=== PATIENT | male | born 1950 | race Caucasian/White ===

== ENCOUNTER 2017-06-08 15:30 | Emergency (ER) | payer OTHER ==
[~2017-06-08] VITALS: Ht 177.8 cm; Wt 100.0 kg
[~2017-06-08 15:30] MED LIST: GEMF600T PO; MISC1CAP2 PO; MISCTAB78 PO; MULT-188 PO; MULT1CAP17 PO; [UNRECOGNIZED DRUG - CODE] PO
[2017-06-08 15:31] VITALS: TEMP 36.7; Ht 177.8 cm; Wt 100.0 kg
[2017-06-08] MEDS ORDERED: CYCLOBENZAPRINE HCL 10 MG TAB PO STA (16:13)
[2017-06-08] MEDS ORDERED: OXYCODONE HCL IR 5 MG TAB (IMMEDIATE RELEASE) PO STA (16:13)
[2017-06-08] MEDS ORDERED: KETOROLAC TROMETHAMINE 60 MG/2 ML VIAL IM STA (16:13)
--- NOTE | 2017-06-08 16:53 | EMERGENCY ROOM VISIT NOTE ---
ED Visit Note First contact with patient: 16:07 CHIEF COMPLAINT: Low back pain HISTORY OF PRESENT ILLNESS: This 67-year-old male presents the ER with chief complaint of left lower back pain. The patient states that he has had pain in this area for the past few weeks. He has been seeing a chiropractor and his symptoms were getting better. The patient states that he was just washing his face this morning and a sharp pain flow into the left lower back again. The patient denies any pain radiating down his legs or any numbness and tingling. The patient denies any loss of bowel or bladder control or any saddle anesthesia. Patient denies any other urinary symptoms. The patient took Advil without any relief of the pain. REVIEW OF SYSTEMS: 6 system review was performed and was negative unless stated otherwise in history of present illness. PMH: The patient is healthy; right shoulder surgery 2, left knee surgery 2, high triglycerides SOCIAL HISTORY: Patient lives with his . The patient admits tobacco use and occasional alcohol use. PHYSICAL EXAM: Vital Signs normal: Reviewed Nurse's notes and agree. GEN.: 67- year-old white male appears in comfortable secondary to back pain. MENTAL STATUS: Alert and oriented in no acute distress. LUMBAR SPINE: No gross bony abnormality noted. Patient is nontender to palpation over the spinous processes. He is tender to palpation over the left paravertebral region, right side nontender. He has full range of motion of the lumbar spine with pain elicited with extension and left lateral bending. Muscle strength is 5 out of 5 bilateral lower extremities and symmetrical. NEURO: Patient is able to heel and toe walk without difficulty. I lateral patellar and Achilles reflexes are 2+. Sensation is intact to pinprick bilateral lower extremities. Negative straight leg raise bilaterally. EMERGENCY DEPARTMENT COURSE: The patient was evaluated. The patient was given Toradol 60 mg IM, Flexeril 10 mg by mouth and OxyIR 10 mg by mouth. The patient did not want the OxyIR since he has not eaten anything. I told him I would give him crackers but he declined. The patient was reevaluated and was feeling slightly better. The patient was independently evaluated by Dr. goodrich who agreed with treatment plan. The patient was discharged home in stable condition. DIAGNOSIS: Lumbar strain DISCHARGE INSTRUCTIONS AND TREATMENT: Ibuprofen 600 mg every 6 hours with food for pain. Rx is given for OxyIR 5 mg. 1-2 tablets every 6 hours as needed for more severe pain. Do not drive while taking the OxyIR. Patient was also given Rx for Flexeril 10 mg. One tablet p.o. every 8 hours for muscle spasms. Dispense [address] taking the Flexeril. Avoid staying in any one position for an extended period of time. If symptoms persist or worsen, follow up with your family doctor for referral for additional testing. Problem List Medical Problems: (1) Hand laceration Status: Resolved Current/Historical Medications Scheduled Docosahexaenoic Acid-Eicosapen ([place]-3), 2 CAP PO DAILY Gemfibrozil (Lopid), 600 MG PO DAILY Misc Natural Products (Osteo Bi-Flex Advanced Do), 1 TAB PO BID Misc Natural Products (Prostate), 1 CAP PO DAILY Multiple Vitamins W/ Minerals (Multi For Him), 1 CAP PO DAILY Allergies Coded Allergies: No Known Allergies (Unverified , 06/08/17) Vital Signs Date Time Temp Pulse Resp B/P (MAP) Pulse Ox O2 Delivery O2 Flow Rate FiO2 06/08/17 15:31 36.7 80 18 166/113 98 Room Air Medications Administered Medications (Trade) Dose Ordered Sig/Radha Route Start Time Stop Time Status Last Admin Dose Admin Ketorolac Tromethamine (Toradol Inj) 60 mg NOW STAT IM 06/08/17 16:13 06/08/17 16:14 DC 06/08/17 16:25 60 MG Cyclobenzaprine HCl (Flexeril Tab) 10 mg NOW STAT PO 06/08/17 16:13 06/08/17 16:14 DC 06/08/17 16:24 10 MG Oxycodone HCl (Roxicodone Immediate Rel Tab) 10 mg NOW STAT PO 06/08/17 16:13 06/08/17 16:14 DC 06/08/17 16:24 10 MG Departure Information Referrals Prakash Maxwell M.D. (PCP) Patient Instructions [facility]
[2017-06-08] MEDS ORDERED: CYCL10TA6 PO (16:55)
[2017-06-08] MEDS ORDERED: OXYC1TAB3 PO (16:55)
[2017-06-08 17:02] VITALS: BP 140/89; PULSE 70; O2SAT 99
--- NOTE | 2017-06-08 19:31 | EMERGENCY ROOM VISIT NOTE ---
ED Visit Note First contact with patient: 16:07 HPI: Left lumbar, hip pain. No urinary retention or bowel incontinence. Plan: Analgesia. PCP f/u. I reviewed the patient's past medical history, medications, and visit nursing notes. I discussed the case with the physician safety assistant, examined the patient, and agree with the findings and plan as documented in the physician assistants note.
== END 2017-06-08 17:04 | disposition home or self-care (01) ==
LOC: C.EDB 15:30 → C.EDD 17:04
DX: S39.012A Strain of muscle, fascia and tendon of lower back, initial encounter (principal); X50.1XXA Overexertion from prolonged static or awkward postures, initial encounter; Y92.9 Unspecified place or not applicable; E78.1 Pure hyperglyceridemia; Z72.0 Tobacco use; Z79.899 Other long term (current) drug therapy

== ENCOUNTER 2018-12-25 17:06 | Inpatient (IN) ==
--- OUTSIDE RECORDS SUMMARY | 2018-12-25 17:09 | External Medical Summary | Continuity of Care Document ---
:1950 Author Name Siena Alvarez Address Unavailable Unavailable , Care Team Providers Name Role Phone [facility] Unavailable [email or web address] [email or web address], [email or web address] Unavailable Unavailable Problems Active medical history not documented Allergies and Adverse Reactions Allergy history not documented Medications Medications not documented Procedures Procedures not documented Immunizations Immunizations not documented Plan of Treatment Planned Observations Planned Goals not documented Results No Known Results Results not documented Encounters Appointment; [facility], Nursing Station 24-Feb-2018 10:20 Encounter Diagnosis: Problem not documented
[2018-12-25] MEDS ORDERED: NITROGLYCERIN SL 0.4 MG/TAB TAB SL PRN (17:13)
[2018-12-25] MEDS ORDERED: ASPIRIN CHEW 324 MG PO STA (17:18)
[2018-12-25] MEDS ORDERED: ASPIRIN CHEW 324 MG ONE (17:19)
[2018-12-25] MEDS ORDERED: NiCARDipine HCL INJ 2.5 MG/ML 10 ML AMP ONE (17:20)
[2018-12-25] MEDS ORDERED: NITROGLYCERIN/D5W 100MCG/ML 20ML SYR ONE (17:21)
[2018-12-25] MEDS ORDERED: HEPARIN (PORCINE) 1000 UNIT/ML 10 ML (CATH LAB USE ONLY) ONE ×2 (17:21→18:14)
[2018-12-25] MEDS ORDERED: fentaNYL citrate 100 MCG/2 ML VIAL ONE (17:22)
[2018-12-25] MEDS ORDERED: MIDAZOLAM HCL 1 MG/ML 2ML VIAL ONE ×2 (17:22→18:10)
--- NOTE | 2018-12-25 17:30 | XRay Report ---
XR chest 1V portable CLINICAL HISTORY: Atypical chest pain COMPARISON STUDY: No previous studies for comparison. FINDINGS: The heart is at the upper limits of normal in size. There is no failure. Focal pulmonary co nsolidation. There are no pleural effusions.[ IMPRESSION: No active disease in the chest. Electronically signed by: Eyal Root M.D. 12/25/2018 5:29 PM
[2018-12-25 17:37] LABS: Basophils # (auto) 0.03 K/uL (0-0.2); Basophils % (auto) 0.4 %; Eosinophils # (auto) 0.21 K/uL (0-0.5); Eosinophils % (auto) 2.5 %; Hematocrit (blood only) 42.8 % (42-52); Hemoglobin 14.5 g/dL (14.0-18.0); Immature Granulocytes # (auto) 0.02 K/uL (0.00-0.02); Immature Granulocytes % (auto) 0.2 %; Lymphocytes # (auto) 2.72 K/uL (1.2-3.4); Lymphocytes % (auto) 32.5 %; Mean Corpuscular Hgb Conc 33.9 g/dL (32-36); Mean Corpuscular Volume 89.2 fL (80-100); Mean Platelet Volume 11.1 fL (7.4-10.4); Monocytes # (auto) 0.73 K/uL (0.11-0.59); Monocytes % (auto) 8.7 %; Neutrophils # (auto) 4.66 K/uL (1.4-6.5); Neutrophils % (auto) 55.7 %; Platelet Count 151 K/uL (130-400); RDW Coefficient of Variation 13.6 % (11.5-14.5); RDW Standard Deviation 44.5 fL (36.4-46.3); White Blood Count 8.37 K/uL (4.8-10.8)
--- NOTE | 2018-12-25 17:44 | Pre Anesthesia Assessment ---
Date of Service December 25, 2018 Pre Sedation Assessment Vital Signs Temp Pulse Pulse Resp BP BP Pulse Ox 12/25/18 17:28 71 19 143/90 H 95 12/25/18 17:18 71 24 167/92 H 95 12/25/18 17:07 36.6 C 65 18 179/94 H 98 Cardiovascular RRR, no murmur, no edema Respiratory normal respiratory effort, lungs clear to auscultation Pre-Sedation Airway Assessment Smoking Status: Current some day smoker Hx Sleep Apnea: No Hx Difficult Intubation: No Short, Thick Neck: No Thyromental Distance: > or= 3.5 Finger Breadths Oral Cavity: + WNL Mallampati Class: III ASA: ASA3 Procedure Planning Contraindications for Sedation: none Current Medications Reviewed: Yes Notes The planned sedation has been discussed with the patient. Informed Consent was obtained. I have identified the patient, determined the appropriateness of sedation and have assessed the patient immediately prior to the procedure. All medicine(s) and interventions are by my order.
[2018-12-25 17:47] LABS: Prothrombin Time 10.4 Seconds (9.0-12.0)
--- NOTE | 2018-12-25 17:48 | Cardiology Consultation ---
Date of Consultation December 25, 2018 Assessment & Plan (1) ST elevation myocardial infarction (STEMI) of inferior wall: Presentation consistent with inferior STEMI and recommend proceeding with emergent cardiac catheterization and likely primary PCI. No apparent contraindications to procedure. Discussed risks, benefits, alternatives of procedure with patient and they are willing to proceed. Further recommendations pending findings of coronary angiography. History of Present Illness History of Present Illness 68-year-old man here with acute chest pain and ECG concerning for acute AL. Patient seen emergently in the ED after heart alert activated upon arrival. No prior cardiac history. Cardiac risk factors include dyslipidemia. No other real medical problems. Symptoms began approximately an ~1-2 hrs prior to arrival after coming in from playing with [employer] outside in the sun. Describes left arm/jaw pain. Denies similar symptoms in the past. Chest pain free on arrival with mild residual arm discomfort. Hemodynamically stable. EKG showed inferior ST elevations. Allergies Allergy/AdvReac Type Severity Reaction Status Date / Time No Known Allergies Allergy Unverified 12/25/18 17:21 Home Medications Home Medications Medication Instructions Recorded Confirmed Type gemfibrozil 600 mg PO DAILY 12/25/18 12/25/18 History glucosamine-chondroitin [Osteo 1 tab PO DAILY 12/25/18 12/25/18 History Bi-Flex] multivitamin 1 tab PO DAILY 12/25/18 12/25/18 History omega 3-zor-wze-fish oil [[place]-3] 1 cap PO DAILY 12/25/18 12/25/18 History nll-Sc-bvi-dmwql-wjvh-dj-Zn-Cu 1 cap PO DAILY 12/25/18 12/25/18 History [Prostate Control] Patient History Medical History Hand laceration (Resolved) Sciatica of left side (Acute) Social History Preferred Language: Frisian marital status: Feels Safe at Home: Yes Smoking Status: Current some day smoker Tobacco Type: smokeless tobacco Review of Systems Review of Systems: Not obtained in the setting of emergent situation Physical Exam Physical Exam: General: Comfortable, no acute distress HEENT: Sclerae anicteric, mucous membranes moist Lungs: Clear to auscultation bilaterally, no rhonchi or wheezes Cardiac: Regular rate and rhythm, no murmurs. No JVD. Abdomen: Soft, nontender, nondistended, positive bowel sounds. Extremities: Warm, well perfused, no edema. 2+ radial pulses Skin: No rashes or lesions. Neuro: Nonfocal Psych: Alert orient x3, normal affect and mood Results & Data Vital Signs (Past 12 Hours) Vital Signs Temp Pulse Pulse Resp BP BP Pulse Ox 12/25/18 17:28 71 19 143/90 H 95 12/25/18 17:18 71 24 167/92 H 95 12/25/18 17:07 36.6 C 65 18 179/94 H 98
[2018-12-25 17:54] LABS: Albumin Level 3.7 gm/dl (3.4-5.0); BUN Creatinine Ratio 25.3 (10-20); Calcium 8.7 mg/dl (8.5-10.1); Creatinine Clr Calc Pharmacy 82.4 ml/min; Est GFR (African American) 85.7; Est GFR (Non-African American) 73.9
[2018-12-25 18:05] LABS: Albumin Globulin Ratio 1.2 (0.9-2); Bilirubin,Total 0.4 mg/dl (0.2-1); Globulin 3.2 gm/dl (2.5-4.0); Total Protein 6.9 gm/dl (6.4-8.2); Troponin I 0.242 ng/ml (0-0.045)
[2018-12-25] MEDS ORDERED: TICAGRELOR 90 MG TAB PO ONE (18:17)
[2018-12-25] MEDS ORDERED: ONDANSETRON INJ 2 MG/ML 2 ML VIAL IV PRN (18:24)
[2018-12-25] MEDS ORDERED: ACETAMINOPHEN 325 MG TAB PO PRN (18:24)
[2018-12-25] MEDS ORDERED: ICU PROTOCOL FOR HYPERGLYCEMIA PRN (18:24)
[2018-12-25] MEDS ORDERED: SODIUM CHLORIDE 0.9% 1000ML 1,000 ML IV SCH (18:30)
--- NOTE | 2018-12-25 18:35 | Post Anesthesia Assessment ---
Date of Service December 25, 2018 Post Sedation Assessment Vital Signs Temp Pulse Pulse Resp BP BP Pulse Ox 12/25/18 17:28 71 19 143/90 H 95 12/25/18 17:18 71 24 167/92 H 95 12/25/18 17:07 36.6 C 65 18 179/94 H 98 Recovery Score Activity: Moves 4 extremities Respiration: Deep Breath/Cough Circulation: +/-20% PreAnes Value Consciousness: Fully Awake Oxygen Saturation: O2 needed for >90% Discharge Sedation Level of Care: Fast Track Phase II Post Sedation Plan On clinical assessment, the patient appears to have tolerated the sedation without complications. Patient is recovering as anticipated. Patient will continue to be monitored by nursing and may be discharged when sedation discharge criteria are met per below protocol. Upon Completions of procedure and additional 15 minutes continue every 5 minute vital signs and the P.A.R. score; then discharge to a Phase I or Fast Track to Phase II per the following guidelines: * Discharge Patient to appropriate Phase II area if PAR is 8 or greater or return to pre- procedure baseline. The post - procedure orders will be as directed. * If PAR score is less than 8 or not return to pre-procedure baseline then patient will follow Phase I monitoring till PAR is reached for Phase II. The Phase I may be done in procedure room or may call to secure a Phase I area. * If naloxone or flumazenil are used for reversal, hold in Phase I for cont inued monitoring from when last reversal dose was given for a minimum of 60 minutes or longer pending the nurse and/or physician discretion of patient condition before discharge to Phase II. Please call the Sedation Physician to re-evaluate and complete post-note for discharge to Phase II area. Do NOT discharge from procedure sedation or Phase 1 until post- sedation evaluation note is complete by procedure /sedation MD Sedation Discharge Instructions to be given to the patient at discharge to home.
--- NOTE | 2018-12-25 18:38 | Cardiac Catheterization ---
Cardiac Cath Procedure Full Procedure Date December 25, 2018 Pre-Procedure Diagnosis Pre-Procedure Diagnosis: STEMI AUC Score AUC Score: 9 Post-Procedure Diagnosis Post-Procedure Diagnosis: Severe CAD, Normal LV Systolic Function and Normal Intracardiac Pressures Procedure(s) Performed Procedure(s) Performed: Coronary Angiography, Left Heart Cath and LV Angiography Mechanical Project Engineer Stas Jay MD Director Cardiology(s) Chriss Estimated Blood Loss Estimated Blood Loss: 5 Medication(s) Medication(s): Fentanyl, Heparin, Lidocaine 1%, Nicardipine, Nitroglycerin and Versed Medication(s): Ticagrelor Summary of Findings Indication: STEMI/Heart Alert Access: 6 Fr right radial artery Catheters: Ikari 3.5 guide Findings: LM -large caliber vessel, no significant disease LAD -large caliber vessel, proximal luminal irregularities, gives off large bifu rcating first diagonal without significant disease, distal vessel with luminal irregularities to the apex Circumflex -large caliber vessel, 100% mid segment occlusion after takeoff of large OM1 RCA -moderate caliber vessel, dominant, 30 to 40% mid segment disease, distal vessel with luminal irregularities. Small right PDA LVEDP -17 -- PCI -- Antithrombotic therapy: Heparin, ticagrelor Procedure: Left knee cannulated with Ikari 3.5 guide Kennel Operator 50 wire passed across lesion into distal vessel Mid circumflex lesion predilated with 2.5 compliant balloon Dilated lesion stented with 3.0 x 34 m [place] drug-eluting stent Stent post-dilated with 3.0 noncompliant balloon IC vasodilators administered for spasm Post procedure SHAVONNE 3 flow, stent well expanded with minimal residual stenosis and no apparent cardiac complications. Arterial Closure: TR band Summary: 1. Inferior STEMI/acutely occluded mid circumflex 2. Mild to moderate non-culprit coronary artery disease -30-40% mid RCA 3. Normal intracardiac filling pressure 4. Successful PCI of mid circumflex and for with single drug-eluting stent (3.0 x 34 mm Benjamin). Recommendations: Admit to ICU for continued monitoring Loaded with Kegler 180 mg Continue dual-antiplatelet therapy for at least 1 year. 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[employer] Cardiac Status Clinical evaluation leading to the procedure CAD Presenation: STEMI Anginal Classification: CCS IV Cardiogenic Shock within 24 Hours: No Cardiac Arrest within 24 Hours: No Imaging Studies Past 6 Months: No Stress Studies Past 6 Months: No Diagnostic Physicians Name: Stas Jay MD Status: Emergency Closure Device Percutaneous Entry Location: Radial Closure Device: Radial Band Recommendations: PCI without planned CABG PCI Indication: Immediate PCI for STEMI First Noted: First EKG Lesion Segment Name: mid circumflex Culprit Artery: Yes Stenosis Prior to Rx (%): 100 Chronic Total Occlusion: No IVUS: No FFR: No Pre-Procedure SHAVONNE Flow: 0 Previously Treated Lesion: No Lesion Complexity: Non-High/Non-C Lesion Length (mm): 28 Thrombus Present: Yes Bifurcation Lesion: Yes Guidewire Across Lesion: Stenosis Post-Procedure (%): 0 Post-Procedure SHAVONNE Flow: 3 Devices(s) Deployed: Yes Yes Intraprocedure Events Significant Disection: No Perforation: No
--- NOTE | 2018-12-25 19:43 | History & Physical Report ---
Date of Service December 25, 2018 Assessment & Plan (1) ST elevation myocardial infarction (STEMI) of inferior wall: This is a 68yo M with a PMH of dyslipidemia and tobacco use disorder who presented to the ED with left arm and jaw discomfort and was found to have an inferior STEMI. -Initial EKG with inferior STEMI -S/p JADON to 1 drug-eluting stent in the circumflex coronary artery -Recovering in ICU without issue. Repeat EKG with normal sinus rhythm -Loaded with Brilinta -Per Dr. Jay, continue dual-antiplatelet therapy for at least 1 year -Trend troponins until peak, check echo -Started on Toprol and Lisinopril. Uptitrate as BP allows -High-dose statin -Consult cardiac Rehab (2) Dyslipidemia: Initiated on high dose statin. Will discontinue gemfibrozil (3) Tobacco use disorder: Currently uses 2 cans smokeless tobacco weekly Counseled on cessation Code status: FULL PCP: Alissa Dispo: Admitted to ICU. Discharge planning ordered. Patient seen in collaboration with Dr. Thomas. Please see addendum. History of Present Illness Chief Complaint: chest pain Primary Care Provider: Prakash Maxwell MD This is a 68yo M with a PMH of dyslipidemia and tobacco use disorder who presented to the ED with left arm and jaw discomfort. Patient woke up today normal state of health and mowed the lawn without issue. Was relaxing in his home a few hours later watching TV when he developed an aching pain in his left arm as well as in his jaw. Denies any associated shortness of breath, diaphoresis, nausea or vomiting. Called a tele-nurse, who instructed him to call an ambulance but patient decided to drive himself to the ED. Upon arrival, patient had an EKG that was concerning for acute TN and heart alert was activated. EKG revealed inferior STEMI and patient was taken to cardiac catheterization, where Dr. Jay placed JADON to occluded mid-circumflex. Patient is recovering in the ICU without issue. Denies any chest pain at rest. No fever, chills, lightheadedness, headache, palpitations, shortness of breath, nausea, vomiting, abdominal pain. No dysuria, diarrhea or constipation. Denies any cardiac history or family history of heart disease. Does use 2 cans of chewing tobacco weekly. Allergies Allergy/AdvReac Type Severity Reaction Status Date / Time No Known Allergies Allergy Unverified 12/25/18 17:21 Home Medications Home Medications Medication Instructions Recorded Confirmed Type gemfibrozil 600 mg PO DAILY 12/25/18 12/25/18 History glucosamine-chondroitin [Osteo 1 tab PO BID 12/25/18 12/25/18 History Bi-Flex] multivitamin 1 tab PO DAILY 12/25/18 12/25/18 History omega 2-nbn-mhp-fish oil [[place]-3] 1 cap PO DAILY 12/25/18 12/25/18 History umo-Fe-nff-meotz-anne-cf-Zn-Cu 1 cap PO BID 12/25/18 12/25/18 History [Prostate Control] Past Med/Surg History Medical History Tobacco use disorder (Chronic) Dyslipidemia (Chronic) Surgical History History of knee surgery (Resolved) History of shoulder surgery (Resolved) Family History Mother Diabetes Social History Preferred Language: Danish Communication Ability: Effective Engineering Surveyor Required: No Beliefs That Will Affect Care: None marital status: Current Living Situation: Spouse Other Information That Helps Us Care for You: No Feels Safe at Home: Yes Safety Concerns: Feels Safe At This Time Smoking Status: Current some day smoker Tobacco Type: smokeless tobacco Do You Dip or Chew Tobacco: Yes Second Hand Exposure: No Tobacco Cessation Education Requested by Patient: No Hx Alcohol Use: Yes Alcohol type: beer Hx Substance Use: No Review of Systems Review of Systems: At least ten systems reviewed and negative except as noted in the HPI. Physical Exam Physical Exam: General Appearance: WD/WN, no apparent distress, resting comfortably Head: normocephalic, atraumatic Eyes: normal inspection, PERRL, EOMI ENT: hearing grossly normal, pharynx normal (moist mucous membranes) Neck: supple, no JVD, no adenopathy Respiratory/Chest: lungs clear to auscultation. No wheezes, rales or rhonci. No respiratory distress or accessory muscle use Cardiovascular: regular rate, rhythm, no murmur, normal peripheral pulses, trace BLE edema Abdomen/GI: normal bowel sounds, soft, non-tender to palpation Extremities/Musculoskelatal: normal inspection, no calf tenderness, normal capillary refill. R wrist guard in place post-cath, no bleeding Neurologic/Psych: alert, normal mood/affect, oriented x 3 Skin: normal color, warm/dry Results & Data Vital Signs (Past 12 Hours) Vital Signs Temp Pulse Pulse Resp BP BP Pulse Ox 12/25/18 19:13 36.8 C 63 19 148/82 H 96 12/25/18 19:00 36.8 C 60 14 148/82 H 94 12/25/18 17:28 71 19 143/90 H 95 12/25/18 17:18 71 24 167/92 H 95 12/25/18 17:07 36.6 C 65 18 179/94 H 98 Laboratory Results Short CBC 12/25/18 Range/Units 17:21 WBC 8.37 (4.8-10.8) K/uL Hgb 14.5 (14.0-18.0) g/dL Hct 42.8 (42-52) % Plt Count 151 (130-400) K/uL BMP 12/25/18 17:21 Sodium 139 Potassium 4.0 Chloride 108 H Carbon Dioxide 29 BUN 26 H Creatinine 1.04 Glucose 103 H Calcium 8.7 Cardiac Enzymes 12/25/18 Range/Units 17:21 Troponin I 0.242 H* (0-0.045) ng/ml Liver Function 12/25/18 Range/Units 17:21 Total Bilirubin 0.4 (0.2-1) mg/dl AST 17 (15-37) U/L ALT 23 (12-78) U/L Alkaline Phosphatase 85 (45-117) U/L Albumin 3.7 (3.4-5.0) gm/dl Diagnostic Findings CXR: IMPRESSION: No active disease in the chest. Supervising Physician Co-Signing Physician Notes I have seen and examined the patient and have discussed the case with the provider above. I agree with the assessment and plan as stated with the following exceptions. Mr. Clayton is recovering well from his cardiac catheterization and stent placement. He minimizes his initial symptoms but did report some chest pain which is not currently present. He is asymptomatic at this time. Physical exam reveals stable vital signs, normal heart exam with S1/S2 heard and no evidence of murmur, gallops or rubs, 2+ radial pulses bilaterally, no JVD, no peripheral edema, clear lungs to auscultation continue management as above with addition of Lipitor 80, metoprolol tartrate 25 mg p.o. twice daily, baby aspirin, Brilinta, lisinopril 5. Patient to recover in ICU overnight for close monitoring. DO William
--- NOTE | 2018-12-25 19:49 | Critical Care Consultation ---
Date of Consultation December 25, 2018 Assessment & Plan (1) Admitted to intensive care unit: Reason Critically Ill: 68-year-old male with acute STEMI status post PTCA with JADON x1 to the circumflex artery NEURO - CAM ICU: NEGATIVE CARDIAC/VASCULAR - Acute STEMI status post PTCA with JADON x1 to the circumflex artery. Monitor hemodynamics closely s/p PCI. AM Echo ASCVD per typical Monitor on telemetry. RESPIRATORY - No h/o pulmonary disease. Supplemental O2 PRN GI/NUTRITION - AHA diet. RENAL/LYTES - No significant electrolyte derangements. - No concerns at this time. ENDO - No h/O DM or Thyroid Dz BSGs per unit protocol. ISS --> gtt per unit policy. HEME - Stable H&H ID - No concerns for infectious contribution at this time. LINES/IV ACCESS - PIVs x2 DVT PROPHYLAXIS - Hold s/p anticoagulation/antiplatelet therapy SCDs I have personally spent 35 minutes of critical care time in the direct management of this patient. This is a life/limb threatening event. This includes time spent evaluating patient, direct bedside care, chart review, placing orders, interpretation of diagnostic studies, discussion with consultants, patient, and family members, as well as other required patient management activities. This time is exclusive of all separately billable procedures, and teaching time and separate from and in addition to any other critical care service time. Thank you for allowing us to participate in the care of this patient. Please refer to my attending physician's documentation for any further recommendations. The patient was seen, examined independently, agreed with the above. You may refer to my other note. (2) S/P PTCA (percutaneous transluminal coronary angioplasty): (3) S/P drug eluting coronary stent placement: (4) Tobacco use disorder: (5) Dyslipidemia: (6) ST elevation myocardial infarction (STEMI) of inferior wall: History of Present Illness Attending Physician: Christopher Reeves MD Patient is a 68-year-old male presenting to the ICU status post PTCA with JADON x1 to the circumflex artery. Presented to the emergency department earlier today with chest pain with radiation to the LEFT arm and jaw. Status post intervention, the patient is without pain. On evaluation, the patient is awake, alert, and oriented. He offers no complaints at this time. Allergies Allergy/AdvReac Type Severity Reaction Status Date / Time No Known Allergies Allergy Unverified 12/25/18 17:21 Home Medications Home Medications Medication Instructions Recorded Confirmed Type gemfibrozil 600 mg PO DAILY 12/25/18 12/25/18 History glucosamine-chondroitin [Osteo 1 tab PO BID 12/25/18 12/25/18 History Bi-Flex] multivitamin 1 tab PO DAILY 12/25/18 12/25/18 History omega 3-djw-itr-fish oil [[place]-3] 1 cap PO DAILY 12/25/18 12/25/18 History odc-Gu-jzb-zokpx-ulsc-pa-Zn-Cu 1 cap PO BID 12/25/18 12/25/18 History [Prostate Control] ticagrelor [Brilinta] 90 mg PO BID 30 Days #60 tab 12/26/18 Rx Patient History Medical History Tobacco use disorder (Chronic) Dyslipidemia (Chronic) Surgical History History of knee surgery (Resolved) History of shoulder surgery (Resolved) Family History Mother Diabetes Social History Preferred Language: Faroese Communication Ability: Effective Talent Acquisition Administrator Required: No Beliefs That Will Affect Care: None marital status: Current Living Situation: Spouse Other Information That Helps Us Care for You: No Feels Safe at Home: Yes Safety Concerns: Feels Safe At This Time Smoking Status: Current some day smoker Tobacco Type: smokeless tobacco Do You Dip or Chew Tobacco: Yes Second Hand Exposure: No Tobacco Cessation Education Requested by Patient: No Hx Alcohol Use: Yes Alcohol type: beer Hx Substance Use: No Review of Systems Review of Systems: A complete 10 point review of systems was reviewed with the patient with pertinent positives and negatives as per history of present illness. All else were negative. Physical Exam Physical Exam: VITAL SIGNS - Vital signs and nursing notes were reviewed. GENERAL - 68-year-old male appearing his stated age who is in no acute distress. Communicates well with provider and answers questions appropriately. HEAD - NC/AT. EYES - PERRL with EOMI bilaterally. Sclera anicteric. EARS - No deformities of external structures noted on gross examination bilaterally. NOSE - Midline and without cyanosis. No epistaxis or purulent drainage noted. Septum midline without deviation or septal hematoma noted. MOUTH/OROPHARYNX - Without perioral cyanosis. t NECK - Neck with FROM. LUNGS - Chest wall symmetric without accessory muscle use, intercostals retractions, or central cyanosis. Normal vesicular breath sounds CTA B/L. No wheezes, rales, or rhonchi appreciated. CARDIAC - RRR with S1/S2. No murmur, rubs, or gallops appreciated. No reproducible tenderness to palpation appreciated over the anterior chest wall. ABDOMEN - Abdominal contour obese without pulsations or visible masses. BS normoactive all four quadrants. No tenderness, palpable masses, hepatosplenomegaly, or ascites noted. EXTREMITIES - No clubbing or peripheral cyanosis. No pretibial edema present. +3/5 radial and dorsalis pedis pulses palpated throughout. NEUROLOGIC - Cranial nerves II through XII grossly intact. PSYCH - A&Ox3 and cooperates fully with examiner. Pt is very pleasant and interacts well with examiner. Results & Data Vital Signs (Past 12 Hours) Vital Signs Temp Pulse Pulse Resp BP BP Pulse Ox 12/25/18 19:13 36.8 C 63 19 148/82 H 96 12/25/18 19:00 36.8 C 60 14 148/82 H 94 12/25/18 17:28 71 19 143/90 H 95 12/25/18 17:18 71 24 167/92 H 95 12/25/18 17:07 36.6 C 65 18 179/94 H 98 PG Care Time/CCT Critical Care Time: Yes Total Critical Care Time: 35
[2018-12-25] MEDS ORDERED: TICAGRELOR 90 MG TAB PO SCH (21:00)
[2018-12-25] MEDS: METOPROLOL TARTRATE 25 MG TAB PO SCH (21:03)
--- NOTE | 2018-12-25 23:54 | Emergency Department Note ---
Entered by Risa Brown acting as a scribe for History of Present Illness General Chief complaint: Cardiac Assessment Stated complaint: LEFT ARM NUMBNESS, JAW PAIN Source: patient History of Present Illness Provider complaint: casdiac assessment Onset (ago): hour(s) 2 Radiation: extremity (left upper) and other (left jaw) Pain Consistency: + other (episode) Maximum Pain Intensity: 3 Quality: + aching Associated symptoms: + denies other symptoms (abdominal pain) and + other (tingling); no chest pain Treatments prior to arrival: NSAID (Advil) The patient is a 68 year old male who presents to the ED with the need for a cardiac assessment starting 2 hours. The patient states that he felt a tingling in his left arm that started 2 hours ago. The patient notes that as of recently his left arm and left jaw aches. The patient took 2 Advil prior to arrival. The patient states that the pain is currently at a 3/10. The patient notes that he uses smokeless tobacco most days. The patient states that he has also started excising again, but mostly does muscular endurance exercises instead of cardio. The patient denies central chest pain or abdominal pain. Home Medications Home Medications Medication Instructions Recorded Confirmed Type gemfibrozil 600 mg PO DAILY 12/25/18 12/25/18 History glucosamine-chondroitin [Osteo 1 tab PO BID 12/25/18 12/25/18 History Bi-Flex] multivitamin 1 tab PO DAILY 12/25/18 12/25/18 History omega 0-jyq-poq-fish oil [[place]-3] 1 cap PO DAILY 12/25/18 12/25/18 History her-Vv-rqo-zmarb-rbef-yf-Zn-Cu 1 cap PO BID 12/25/18 12/25/18 History [Prostate Control] Allergies Allergy/AdvReac Type Severity Reaction Status Date / Time No Known Allergies Allergy Unverified 12/25/18 17:21 Past Med/Surg History Medical History Tobacco use disorder (Chronic) Dyslipidemia (Chronic) Surgical History History of knee surgery (Resolved) History of shoulder surgery (Resolved) Family History Mother Diabetes Social History Preferred Language: German Communication Ability: Effective Formation Testing Operator Required: No Beliefs That Will Affect Care: None marital status: Current Living Situation: Spouse Other Information That Helps Us Care for You: No Feels Safe at Home: Yes Safety Concerns: Feels Safe At This Time Smoking Status: Current some day smoker Tobacco Type: smokeless tobacco Do You Dip or Chew Tobacco: Yes Second Hand Exposure: No Tobacco Cessation Education Requested by Patient: No Hx Alcohol Use: Yes Alcohol type: beer Hx Substance Use: No Review of Systems See HPI for pertinent positives & negatives. and A total of 10 systems reviewed and were otherwise negative Physical Exam Vital Signs Vital Signs - 24 hr 12/25/18 17:07 12/25/18 17:18 12/25/18 17:28 Temperature 36.6 C Temperature Source Oral Sepsis Recent Fever Within 48 Hours No Sepsis New/Unexplained Change in Mental Status No Sepsis Action Taken by Nursing No Action Required Pulse Rate 65 Pulse Rate [Left Finger] 71 71 Respiratory Rate 18 24 19 Respiratory Effort / Characteristics Non-Labored Spontaneous Blood Pressure 179/94 H Blood Pressure [Left Arm] 167/92 H 143/90 H Blood Pressure Mean 122 Blood Pressure Mean [Left Arm] 117 107 Blood Pressure Position Sitting Pulse Oximetry 98 95 95 Oxygen Delivery Method Room Air GENERAL: Awake, alert, well-appearing, in no distress HENT: Normocephalic, atraumatic. EYES: Normal conjunctiva. Sclera non-icteric. NECK: Supple. No nuchal rigidity. RESPIRATORY: Clear to auscultation. No wheezes. Normal respiratory effort. CARDIAC: Normal rate. Normal rhythm. Extremities warm and well perfused. GI: Soft, non-distended. No tenderness to palpation. MUSCULOSKELETAL: Atraumatic. Chest examination reveals no tenderness. No arm tenderness LOWER EXTREMITIES: Calves are equal size bilaterally and non-tender. No edema NEURO: Normal sensorium. No sensory or motor deficits noted. No facial droop. SKIN: Warm and dry. No rash or jaundice noted. Course 1714: Past medical records reviewed. The patient was evaluated in room A1. A complete history and physical exam was performed. 1736: The patient is being sent to the cardiac catheterization lab. 1751: I discussed the patient's case with Dr. Jay- Cardiology. He will evaluate the patient for further management. Consultations Consultation #1: I discussed the patient's case with Dr. Jay- Cardiology. He will evaluate the patient for further management. Time: 17:52 Administered Medications Sodium Chloride (Nss 1000ml) 1,000 mls @ 100 mls/hr IV .Q10H AIDAN Stop: 12/26/18 01:59 Last Admin: 12/25/18 20:35 Dose: 100 mls/hr Documented by: [id number] Metoprolol Tartrate (Lopressor) 25 mg PO BID AIDAN Stop: 01/24/19 20:59 Last Admin: 12/25/18 21:03 Dose: 25 mg Documented by: [id number] Nitroglycerin (Nitrostat) 0.4 mg SL UD PRN PRN Reason: Chest Pain Stop: 01/24/19 17:12 Last Admin: 12/25/18 17:24 Dose: 0.4 mg Documented by: [id number] Discontinued Medications Aspirin (Aspirin) 324 mg PO NOW STA Stop: 12/25/18 17:19 Last Admin: 12/25/18 17:23 Dose: 324 mg Documented by: [id number] Aspirin (Aspirin) Confirm Administered Dose 324 mg .ROUTE .STK-MED ONE Stop: 12/25/18 17:20 Last Admin: 12/25/18 17:24 Dose: Not Given Documented by: [id number] Fentanyl Citrate (Fentanyl Citrate) Confirm Administered Dose 100 mcg .ROUTE .STK-MED ONE Stop: 12/25/18 17:23 Last Admin: 12/25/18 20:29 Dose: Not Given Documented by: [id number] Heparin Sodium (Porcine) (Heparin Iv Bolus (Manual Control Auger Press Operator Use Only)) Confirm Administered Dose 10,000 units .ROUTE .STK-MED ONE Stop: 12/25/18 17:22 Last Admin: 12/25/18 20:28 Dose: Not Given Documented by: [id number] Heparin Sodium (Porcine) (Heparin Iv Bolus (Manual Control Auger Press Operator Use Only)) Confirm Administered Dose 10,000 units .ROUTE .STK-MED ONE Stop: 12/25/18 18:15 Last Admin: 12/25/18 20:30 Dose: Not Given Documented by: [id number] Heparin Sodium/Sodium Chloride (Heparin/Nss 1000 Unit/500ml Flush Bag) Confirm Administered Dose 3,000 units IV .STK-MED ONE Stop: 12/25/18 17:22 Last Admin: 12/25/18 20:28 Dose: Not Given Documented by: [id number] Midazolam HCl (Versed) Confirm Administered Dose 2 mg .ROUTE .STK-MED ONE Stop: 12/25/18 17:23 Last Admin: 12/25/18 20:29 Dose: Not Given Documented by: [id number] Midazolam HCl (Versed) Confirm Administered Dose 2 mg .ROUTE .STK-MED ONE Stop: 12/25/18 18:11 Last Admin: 12/25/18 20:30 Dose: Not Given Documented by: [id number] Nicardipine HCl (Cardene) Confirm Administered Dose 25 mg .ROUTE .STK-MED ONE Stop: 12/25/18 17:21 Last Admin: 12/25/18 20:23 Dose: Not Given Documented by: [id number] Nitroglycerin/Dextrose (Nitroglycerin/D5w 100 Mcg/Ml 20ml Syringe) Confirm Administered Dose 2,000 mcg .ROUTE .STK-MED ONE Stop: 12/25/18 17:22 Last Admin: 12/25/18 20:29 Dose: Not Given Documented by: [id number] Ticagrelor (Brilinta) Confirm Administered Dose 180 mg PO .STK-MED ONE Stop: 12/25/18 18:18 Last Admin: 12/25/18 20:35 Dose: Not Given Documented by: [id number] Medical Decision Making Differential Diagnosis Differential diagnosis: Etiologies such as shingles, musculoskeletal pain, pericarditis, myocarditis, cardiac ischemia, pericardial tamponade, pneumonia, pneumothorax, pleural effusion, hemothorax, pleurisy, aortic pathology, pulmonary embolism, intra- abdominal process, as well as others were considered. Medical Records Attestation: I reviewed the patient's medical records. Home Medications Current Medication List: was personally reviewed by ct Laboratory Data Attestation: I reviewed the patient's lab results. Result diagrams: 12/25/18 17:21 12/25/18 17:21 Lab Results 12/25/18 12/25/18 12/25/18 Range/Units 17:21 17:21 17:21 WBC 8.37 (4.8-10.8) K/uL RBC 4.80 (4.7-6.1) M/uL Hgb 14.5 (14.0-18.0) g/dL Hct 42.8 (42-52) % MCV 89.2 (80-100) fL MCH 30.2 (25-34) pg MCHC 33.9 (32-36) g/dL RDW Std Deviation 44.5 (36.4-46.3) fL RDW Coeff of Rosita 13.6 (11.5-14.5) % Plt Count 151 (130-400) K/uL MPV 11.1 H (7.4-10.4) fL Immature Gran % (Auto) 0.2 % Neut % (Auto) 55.7 % Lymph % (Auto) 32.5 % Mclean % (Auto) 8.7 % Eos % (Auto) 2.5 % Baso % (Auto) 0.4 % Immature Gran # (Auto) 0.02 (0.00-0.02) K/uL Neut # (Auto) 4.66 (1.4-6.5) K/uL Lymph # (Auto) 2.72 (1.2-3.4) K/uL Mclean # (Auto) 0.73 H (0.11-0.59) K/uL Eos # (Auto) 0.21 (0-0.5) K/uL Baso # (Auto) 0.03 (0-0.2) K/uL PT 10.4 (9.0-12.0) Seconds INR 1.0 (0.9-1.1) Activ Coag Time Kaolin (94-140) SECONDS Sodium 139 (136-145) mmol/L Potassium 4.0 (3.5-5.1) mmol/L Chloride 108 H (98-107) mmol/L Carbon Dioxide 29 (21-32) mmol/L Anion Gap 2.0 L (3-11) BUN 26 H (7-18) mg/dl Creatinine 1.04 (0.6-1.4) mg/dl Est Cr Clr Drug Dosing 82.4 ml/min Est GFR ( Amer) 85.7 Est GFR (Non-Af Amer) 73.9 BUN/Creatinine Ratio 25.3 H (10-20) Glucose 103 H (70-99) mg/dl Calcium 8.7 (8.5-10.1) mg/dl Total Bilirubin 0.4 (0.2-1) mg/dl AST 17 (15-37) U/L ALT 23 (12-78) U/L Alkaline Phosphatase 85 (45-117) U/L Troponin I 0.242 H* (0-0.045) ng/ml Total Protein 6.9 (6.4-8.2) gm/dl Albumin 3.7 (3.4-5.0) gm/dl Globulin 3.2 (2.5-4.0) gm/dl Albumin/Globulin Ratio 1.2 (0.9-2) Lipase 178 (73-393) U/L 12/25/18 Range/Units 18:10 WBC (4.8-10.8) K/uL RBC (4.7-6.1) M/uL Hgb (14.0-18.0) g/dL Hct (42-52) % MCV (80-100) fL MCH (25-34) pg MCHC (32-36) g/dL RDW Std Deviation (36.4-46.3) fL RDW Coeff of Rosita (11.5-14.5) % Plt Count (130-400) K/uL MPV (7.4-10.4) fL Immature Gran % (Auto) % Neut % (Auto) % Lymph % (Auto) % Mclean % (Auto) % Eos % (Auto) % Baso % (Auto) % Immature Gran # (Auto) (0.00-0.02) K/uL Neut # (Auto) (1.4-6.5) K/uL Lymph # (Auto) (1.2-3.4) K/uL Mclean # (Auto) (0.11-0.59) K/uL Eos # (Auto) (0-0.5) K/uL Baso # (Auto) (0-0.2) K/uL PT (9.0-12.0) Seconds INR (0.9-1.1) Activ Coag Time Kaolin 219 H (94-140) SECONDS Sodium (136-145) mmol/L Potassium (3.5-5.1) mmol/L Chloride (98-107) mmol/L Carbon Dioxide (21-32) mmol/L Anion Gap (3-11) BUN (7-18) mg/dl Creatinine (0.6-1.4) mg/dl Est Cr Clr Drug Dosing ml/min Est GFR ( Amer) Est GFR (Non-Af Amer) BUN/Creatinine Ratio (10-20) Glucose (70-99) mg/dl Calcium (8.5-10.1) mg/dl Total Bilirubin (0.2-1) mg/dl AST (15-37) U/L ALT (12-78) U/L Alkaline Phosphatase (45-117) U/L Troponin I (0-0.045) ng/ml Total Protein (6.4-8.2) gm/dl Albumin (3.4-5.0) gm/dl Globulin (2.5-4.0) gm/dl Albumin/Globulin Ratio (0.9-2) Lipase (73-393) U/L Imaging Data Radiologist's Impression: Radiology results as stated below per my review and the radiologist's interpretation: XR chest 1V portable CLINICAL HISTORY: Atypical chest pain COMPARISON STUDY: No previous studies for comparison. FINDINGS: The heart is at the upper limits of normal in size. There is no fail ure. Focal pulmonary consolidation. There are no pleural effusions.[ IMPRESSION: No active disease in the chest. Electronically signed by: Eyal Root M.D. 12/25/2018 5:29 PM ECG Data Attestation: I personally reviewed and interpreted this ECG as follows: Indication: chest pain Rate (beats per minute): 70 Rhythm: sinus rhythm Findings: + ST depression (Anterior) and + ST elevation (Inferior); no PVC Blood Pressure Blood Pressure Findings: Elevated blood pressure Blood Pressure Disposition: further management by hospitalist ESTEFANI Burton Patient is a 68-year-old with a history of hyperlipidemia presenting to the emergency department complaining of left arm numbness and jaw pain. Dull ache in the left upper arm. Little bit of numbness in left upper extremity. Started about 2 hours prior to arrival. Pain is minimal right now denies central chest pain. Initial triage EKG shows findings consistent with an inferior ST segment elevation [place]. Atypical presentation but with EKG findings, a heart alert was called. Given aspirin as well as nitroglycerin. Symptoms improved. Chest x-ray and basic labs obtained. Manual Control Auger Press Operator team evaluated patient at bedside. Patient was immediately taken for cardiac catheterization for possible occlusion/leonard nosis. Do not believe this represents acute pneumonia, pneumothorax, dissection, or PE at this time. Patient had basically resolution of symptoms. Patient was taken to cardiac catheterization laboratory for further treatment intervention by the roving changer. Impression & Plan ST elevation myocardial infarction (STEMI) Critical Care Time Critical Care Time: Yes Total Critical Care Time: 30 I have personally spent 30 minutes of critical care time in the direct management of this patient. This includes bedside care, interpretation of varsha gnostic studies, and testing, discussion with consultants, patient, and family members, and other required patient management activities. This 30 minutes is in excess of all separately billable procedures. Discharge Plan Visit Data *Final* Discharge Date/Time: 12/25/18 17:42 Chief Complaint: Cardiac Assessment Stated Complaint: LEFT ARM NUMBNESS, JAW PAIN ED Provider: Escobar Posada Discharge Problem: ST elevation myocardial infarction (STEMI) Patient Disposition: Still a Patient Discharge Instructions Interventions: ED Discharge Assessment Last Done: 12/25/18 17:42 The scribe's documentation has been prepared under my direction and personally reviewed by me in its entirety. I confirm that the note above accurately reflects all work, treatment, procedures, and medical decision making performed by me.
[2018-12-26 06:41] LABS: Basophils # (auto) 0.03 K/uL (0-0.2); Basophils % (auto) 0.3 %; Eosinophils # (auto) 0.17 K/uL (0-0.5); Eosinophils % (auto) 1.9 %; Hematocrit (blood only) 41.3 % (42-52); Immature Granulocytes # (auto) 0.01 K/uL (0.00-0.02); Immature Granulocytes % (auto) 0.1 %; Lymphocytes % (auto) 19.7 %; Mean Corpuscular Hgb Conc 33.9 g/dL (32-36); Mean Corpuscular Volume 89.2 fL (80-100); Mean Platelet Volume 10.8 fL (7.4-10.4); Monocytes # (auto) 0.82 K/uL (0.11-0.59); Neutrophils # (auto) 6.32 K/uL (1.4-6.5); Platelet Count 143 K/uL (130-400); RDW Coefficient of Variation 13.8 % (11.5-14.5); RDW Standard Deviation 45.3 fL (36.4-46.3); Red Blood Count 4.63 M/uL (4.7-6.1); White Blood Count 9.15 K/uL (4.8-10.8)
[2018-12-26 07:08] LABS: BUN Creatinine Ratio 25.4 (10-20); Calcium 8.5 mg/dl (8.5-10.1); Creatinine Clr Calc Pharmacy 99.6 ml/min; Est GFR (African American) 104.5; Est GFR (Non-African American) 90.2; Magnesium 2.2 mg/dl (1.8-2.4); Potassium 3.9 mmol/L (3.5-5.1)
[2018-12-26 07:34] LABS: Phosphorus 2.8 mg/dl (2.5-4.9); Troponin I 58.8 ng/ml (0-0.045)
[2018-12-26 07:44] LABS: Estimated Average Glucose 140 mg/dl; Hemoglobin A1C 6.5 % (4.5-5.6)
[2018-12-26] MEDS: METOPROLOL TARTRATE 25 MG TAB PO SCH ×2 (08:56→21:37)
[2018-12-26] MEDS: ASPIRIN 81 MG ECTAB PO SCH (08:56)
[2018-12-26] MEDS: LISINOPRIL 5 MG TAB PO SCH (08:56)
[2018-12-26] MEDS: ATORVASTATIN 40 MG TAB PO SCH (08:56)
[2018-12-26] MEDS: TICAGRELOR 90 MG TAB PO SCH ×2 (08:57→21:37)
--- NOTE | 2018-12-26 11:31 | Cardiology Progress Note ---
Date of Service December 26, 2018 Assessment & Plan (1) ST elevation myocardial infarction (STEMI) of inferior wall: 2. Preserved LV function, EF 45 to 50% with inferior, inferolateral wall motion of normality 3. Dyslipidemia 4. Prior tobacco use Patient remains pain-free, hemodynamically and electrically stable. Troponin has peaked and LV function preserved. No access site complications. No signs of heart failure on exam Continue DAPT with aspirin and ticagrelor Continue current beta-sherice, DORINA inhibitor Continue high intensity statin From a cardiac standpoint okay to transfer to telemetry today. Hopefully home tomorrow. Appreciate ICU and hospital medicine care Subjective Patient feeling well. No recurrent chest pain/arm/jaw pain. No other new concerns. No events on telemetry. Review of Systems Review of Systems: All systems reviewed & are unremarkable except as noted in HPI & below Physical Exam Physical Exam: General: Comfortable, no acute distress HEENT: Sclerae anicteric, mucous membranes moist Lungs: Clear to auscultation bilaterally, no rhonchi or wheezes Cardiac: Regular rate and rhythm, no murmurs. No JVD. Abdomen: Soft, nontender, nondistended, positive bowel sounds. Extremities: Warm, well perfused, no edema. Right radial artery access site with no ecchymosis, hematoma. Distal pulse and sensation intact. Skin: No rashes or lesions. Neuro: Nonfocal Psych: Alert orient x3, normal affect and mood Results & Data Vital Signs (Past 12 Hours) Vital Signs Temp Pulse Resp BP Pulse Ox 12/26/18 10:15 61 20 116/72 93 12/26/18 09:14 62 30 H 132/77 95 12/26/18 08:01 37 C 62 9 L 137/68 96 12/26/18 08:00 59 L 26 H 96 12/26/18 07:00 55 L 13 118/84 93 12/26/18 05:53 56 L 18 121/77 96 12/26/18 04:45 56 L 20 126/83 94 12/26/18 04:30 55 L 17 139/81 94 12/26/18 04:15 58 L 21 142/84 H 93 12/26/18 04:01 54 L 21 152/88 H 94 12/26/18 03:45 55 L 21 115/72 94 12/26/18 03:30 55 L 13 123/68 93 12/26/18 03:16 56 L 14 151/73 H 94 12/26/18 03:00 52 L 20 117/80 95 12/26/18 02:45 51 L 17 134/71 97 12/26/18 02:30 56 L 23 132/78 94 12/26/18 02:15 55 L 19 143/83 H 95 12/26/18 02:00 56 L 19 138/81 94 12/26/18 01:45 54 L 19 144/80 H 94 12/26/18 01:30 56 L 13 132/84 95 12/26/18 01:15 53 L 19 137/73 95 12/26/18 01:00 54 L 18 116/75 95 12/26/18 00:45 54 L 17 129/73 95 12/26/18 00:30 60 24 136/76 94 12/26/18 00:15 55 L 17 116/76 95 12/26/18 00:00 55 L 21 127/80 94 12/25/18 23:45 56 L 13 139/81 95 12/25/18 23:30 59 L 19 128/77 94
--- NOTE | 2018-12-26 12:51 | Critical Care Progress Note ---
Date of Service December 26, 2018 Assessment & Plan (1) S/P PTCA (percutaneous transluminal coronary angioplasty): Impression: 1. ST elevation [place], status post JADON to left circumflex artery. 2. History of chewing tobacco. 3. History of hyper triglyceridemia. Plan: 1. Continue post cardiac cath medication. 2. Antiplatelet therapy. 3. Statin. 4. Nicotine cessation counseling. 5. Disposition plan per cardiology. Thank you, will follow as needed. Subjective Asymptomatic this a.m., denies any discomfort in his left upper extremity as he came in with. No chest pain or shortness of breath no hemoptysis no abdominal pain no nausea or vomiting, review of system otherwise was asymptomatic. Review of Systems Review of Systems: Asymptomatic x10 systems. Physical Exam Physical Exam: Vital signs are stable, S1-S2 regular rate and rhythm, lungs are clear, abdomen is benign, no edema, neurologically is intact, no discomfort in left upper extremity. Results & Data Vital Signs (Past 12 Hours) Vital Signs Temp Pulse Resp BP Pulse Ox 12/26/18 10:15 61 20 116/72 93 12/26/18 09:14 62 30 H 132/77 95 12/26/18 08:01 37 C 62 9 L 137/68 96 12/26/18 08:00 59 L 26 H 96 12/26/18 07:00 55 L 13 118/84 93 12/26/18 05:53 56 L 18 121/77 96 12/26/18 04:45 56 L 20 126/83 94 12/26/18 04:30 55 L 17 139/81 94 12/26/18 04:15 58 L 21 142/84 H 93 12/26/18 04:01 54 L 21 152/88 H 94 12/26/18 03:45 55 L 21 115/72 94 12/26/18 03:30 55 L 13 123/68 93 12/26/18 03:16 56 L 14 151/73 H 94 12/26/18 03:00 52 L 20 117/80 95 12/26/18 02:45 51 L 17 134/71 97 12/26/18 02:30 56 L 23 132/78 94 12/26/18 02:15 55 L 19 143/83 H 95 12/26/18 02:00 56 L 19 138/81 94 12/26/18 01:45 54 L 19 144/80 H 94 06/29/19 01:30 56 L 13 132/84 95 12/26/18 01:15 53 L 19 137/73 95 12/26/18 01:00 54 L 18 116/75 95 Laboratory Results Labs were reviewed, stable CBC and BMP. Troponin is 58. Expected post cath. However, it is trending down. Triglyceridemia was noted. Diagnostic Findings Chest x-ray was reviewed, unremarkable. PG Care Time/CCT Critical Care Time: Yes Total Critical Care Time: 35
--- NOTE | 2018-12-26 13:00 | Hospitalist Progress Note ---
Date of Service December 26, 2018 Assessment & Plan (1) ST elevation myocardial infarction (STEMI) of inferior wall: Presented on admission with left arm and left sided jaw discomfort EKG on admission showed inferior STEMI S/P emergent cardiac cath and successful PCI of mid circumflex and for with single drug-eluting stent by Dr. Jay Repeat EKG this morning showed no significant ST changes Continue dual-antiplatelet therapy for at least 1 year Continue metoprolol, statin, lisinopril ECHO showed inferior wall akinesis with EF 45- 50 % Will need cardiac Rehab referral OK from cardiology standpoint to transfer to tele (2) Dyslipidemia: Continue High dose starting Will d/c gemfibrozil on discharge (3) Tobacco use disorder: Counseling on tobacco cessation Code status: FULL PCP: [place] Dispo: Will transfer to Tele DVT px on SCDs/Ambulates Subjective Pt was seen and examined Sitting in chair comfortable with no distress Pt said that he feels fine Denies any chest pain, palpitation, dizziness and SOB Physical Exam Physical Exam: General- No acute distress Head- atraumatic Eyes- PERRL, EOMI, ENT- oropharynx clear Neck- supple, no JVD Lungs- clear to auscultation Heart- regular rhythm; no murmur Abdomen- normal bowel sounds, soft, nontender Extremities- no calf tenderness, right radial/wrist area showed no hematoma Neuro- alert, oriented x 3; PERRL, EOMI; no facial palsy; no dysarthria Skin- warm & dry Results & Data Vital Signs (Past 12 Hours) Vital Signs Temp Pulse Resp BP Pulse Ox 12/26/18 10:15 61 20 116/72 93 12/26/18 09:14 62 30 H 132/77 95 12/26/18 08:01 37 C 62 9 L 137/68 96 12/26/18 08:00 59 L 26 H 96 12/26/18 07:00 55 L 13 118/84 93 12/26/18 05:53 56 L 18 121/77 96 12/26/18 04:45 56 L 20 126/83 94 12/26/18 04:30 55 L 17 139/81 94 12/26/18 04:15 58 L 21 142/84 H 93 12/26/18 04:01 54 L 21 152/88 H 94 12/26/18 03:45 55 L 21 115/72 94 12/26/18 03:30 55 L 13 123/68 93 12/26/18 03:16 56 L 14 151/73 H 94 12/26/18 03:00 52 L 20 117/80 95 12/26/18 02:45 51 L 17 134/71 97 12/26/18 02:30 56 L 23 132/78 94 12/26/18 02:15 55 L 19 143/83 H 95 12/26/18 02:00 56 L 19 138/81 94 12/26/18 01:45 54 L 19 144/80 H 94 12/26/18 01:30 56 L 13 132/84 95 12/26/18 01:15 53 L 19 137/73 95 12/26/18 01:00 54 L 18 116/75 95
[2018-12-27 07:34] LABS: BUN Creatinine Ratio 24.2 (10-20); Calcium 8.7 mg/dl (8.5-10.1); Creatinine Clr Calc Pharmacy 92.7 ml/min; Est GFR (African American) 100.7; Est GFR (Non-African American) 86.9; Potassium 4.1 mmol/L (3.5-5.1)
[2018-12-27] MEDS: ASPIRIN 81 MG ECTAB PO SCH (08:23)
[2018-12-27] MEDS: ATORVASTATIN 40 MG TAB PO SCH (08:23)
[2018-12-27] MEDS: TICAGRELOR 90 MG TAB PO SCH (08:23)
[2018-12-27] MEDS: METOPROLOL TARTRATE 25 MG TAB PO SCH (08:24)
[2018-12-27] MEDS: LISINOPRIL 5 MG TAB PO SCH (08:24)
--- NOTE | 2018-12-27 11:55 | Hospitalist Progress Note ---
Date of Service December 27, 2018 Assessment & Plan (1) ST elevation myocardial infarction (STEMI) of inferior wall: Presented on admission with left arm and left sided jaw discomfort EKG on admission showed inferior STEMI S/P emergent cardiac cath and successful PCI of mid circumflex and for with single drug-eluting stent by Dr. Jay Repeat EKG this morning showed no significant ST changes Continue dual-antiplatelet therapy for at least 1 year Continue metoprolol, statin, lisinopril ECHO showed inferior wall akinesis with EF 45- 50 % case discussed with cardiology and ok from cardiology standpoint to discharge home Will need cardiac Rehab referral Follow up appointment with [facility] cardiology outpatient (2) Dyslipidemia: Continue High dose starting Will d/c gemfibrozil on discharge (3) Tobacco use disorder: Counseling on tobacco cessation Code status: FULL PCP: Alissa DVT px on SCDs/Ambulates Dispo: Follow up with your primary care provider Dr. Ga on 01/01 @ 2:55 PM Follow up with [facility] Cardiology group Subjective Pt was seen and examined Sitting in chair with no distress Pt said that he feels fine He said that he has been walking around with no distress Denies any chest pain, palpitation, dizziness, hematuria and SOB Physical Exam Physical Exam: General- No acute distress Head- atraumatic Eyes- PERRL, EOMI, ENT- oropharynx clear Neck- supple, no JVD Lungs- clear to auscultation Heart- regular rhythm; no murmur Abdomen- normal bowel sounds, soft, nontender Extremities- no calf tenderness Neuro- alert, oriented x 3; PERRL, EOMI; no facial palsy; no dysarthria Skin- warm & dry Results & Data Vital Signs (Past 12 Hours) Vital Signs Temp Pulse Pulse Resp BP Pulse Ox 12/27/18 11:08 36.8 C 61 16 90/55 L 96 12/27/18 10:11 36.6 C 65 18 99/64 L 95 12/27/18 08:13 36.6 C 65 18 99/64 L 95 12/27/18 07:08 80 12/27/18 04:24 36.5 C 80 20 133/67 95 12/27/18 00:00 63
--- NOTE | 2018-12-27 12:33 | Cardiology Progress Note ---
Date of Service December 27, 2018 Assessment & Plan (1) ST elevation myocardial infarction (STEMI) of inferior wall: 2. Preserved LV function, EF 45 to 50% with inferior, inferolateral wall motion of normality 3. Dyslipidemia 4. Prior tobacco use Patient remains pain-free, hemodynamically and electrically stable. From a cardiac standpoint okay for discharge today. Home on aspirin and ticagrelor. DAPT for 1 year. Strongly recommended ticagrelor for at least the first month. Samples and insurance card provided. Home on current beta-sherice, DORINA inhibitor and high intensity statin Can discontinue gemfibrozil, fish oil. Follow-up with cardiology and 2 weeks. Subjective Feeling well today. No recurrent chest pain/arm or neck discomfort. No other new concerns. Telemetry reviewedno events Review of Systems Review of Systems: All systems reviewed & are unremarkable except as noted in HPI & below Physical Exam Physical Exam: General: Comfortable, no acute distress HEENT: Sclerae anicteric, mucous membranes moist Lungs: Clear to auscultation bilaterally, no rhonchi or wheezes Cardiac: Regular rate and rhythm, no murmurs. No JVD. Abdomen: Soft, nontender, nondistended, positive bowel sounds. Extremities: Warm, well perfused, no edema. Insert ready Skin: No rashes or lesions. Neuro: Nonfocal Psych: Alert orient x3, normal affect and mood Results & Data Vital Signs (Past 12 Hours) Vital Signs Temp Pulse Pulse Resp BP Pulse Ox 12/27/18 11:08 36.8 C 61 16 90/55 L 96 12/27/18 10:11 36.6 C 65 18 99/64 L 95 12/27/18 08:13 36.6 C 65 18 99/64 L 95 12/27/18 07:08 80 12/27/18 04:24 36.5 C 80 20 133/67 95
--- NOTE | 2018-12-27 23:04 | Discharge Summary ---
Date of Service December 27, 2018 Admission HPI Per Admitting Provider This is a 68yo M with a PMH of dyslipidemia and tobacco use disorder who presented to the ED with left arm and jaw discomfort. Patient woke up today normal state of health and mowed the lawn without issue. Was relaxing in his home a few hours later watching TV when he developed an aching pain in his left arm as well as in his jaw. Denies any associated shortness of breath, diaphoresis, nausea or vomiting. Called a tele-nurse, who instructed him to call an ambulance but patient decided to drive himself to the ED. Upon arrival, patient had an EKG that was concerning for acute [place] and heart alert was activated. EKG revealed inferior STEMI and patient was taken to cardiac catheterization, where Dr. Jay placed JADON to occluded mid-circumflex. Patient is recovering in the ICU without issue. Denies any chest pain at rest. No fever, chills, lightheadedness, headache, palpitations, shortness of breath, nausea, vomiting, abdominal pain. No dysuria, diarrhea or constipation. Denies any cardiac history or family history of heart disease. Does use 2 cans of chewing tobacco weekly. Admission Exam Per Admitting Provider General Appearance: WD/WN, no apparent distress, resting comfortably Head: normocephalic, atraumatic Eyes: normal inspection, PERRL, EOMI ENT: hearing grossly normal, pharynx normal (moist mucous membranes) Neck: supple, no JVD, no adenopathy Respiratory/Chest: lungs clear to auscultation. No wheezes, rales or rhonci. No respiratory distress or accessory muscle use Cardiovascular: regular rate, rhythm, no murmur, normal peripheral pulses, trace BLE edema Abdomen/GI: normal bowel sounds, soft, non-tender to palpation Extremities/Musculoskelatal: normal inspection, no calf tenderness, normal c apillary refill. R wrist guard in place post-cath, no bleeding Neurologic/Psych: alert, normal mood/affect, oriented x 3 Skin: normal color, warm/dry Principal Diagnosis ST elevation myocardial infarction (STEMI) of inferior wall Dyslipidemia Tobacco abuse Discharge Exam General- No acute distress Head- atraumatic Eyes- PERRL, EOMI, ENT- oropharynx clear Neck- supple, no JVD Lungs- clear to auscultation Heart- regular rhythm; no murmur Abdomen- normal bowel sounds, soft, nontender Extremities- no calf tenderness Neuro- alert, oriented x 3; PERRL, EOMI; no facial palsy; no dysarthria Skin- warm & dry Discharge Data Allergies Allergy/AdvReac Type Severity Reaction Status Date / Time No Known Allergies Allergy Unverified 12/25/18 17:21 Consultations 12/25/18 18:24 Consult Case Management - Discharge Planning Routine 12/25/18 18:26 Consult Education Courses Sales Representative Routine 12/25/18 18:31 Consult Cardiac Rehabilitation Routine Procedures Performed Operation Date: 12/25/18 17:15 Actual Procedures s Cineradiography w/Routine Exam - Daljit Jay MD p Cath, Left with Cors and Vent - Daljit Jay MD s Aspiration/PCI w/JADON for Stemi - Daljit Jay MD Ordered Studies 12/25/18 17:18 CL Cath Imgs for PACS use only Stat XR chest 1V portable CLINICAL HISTORY: Atypical chest pain COMPARISON STUDY: No previous studies for comparison. FINDINGS: The heart is at the upper limits of normal in size. There is no failure. Focal pulmonary consolidation. There are no pleural effusions.[ IMPRESSION: No active disease in the chest. Electronically signed by: Eyal Root M.D. 12/25/2018 5:29 PM Dictated: 12/[id number]/[id number] Transcribed: 12/25/188 Hospital Course (1) ST elevation myocardial infarction (STEMI) of inferior wall: Presented on admission with left arm and left sided jaw discomfort EKG on admission showed inferior STEMI S/P emergent cardiac cath and successful PCI of mid circumflex and for with single drug-eluting stent by Dr. Jay Repeat EKG this morning showed no significant ST changes Continue dual-antiplatelet therapy for at least 1 year Continue metoprolol, statin, lisinopril ECHO showed inferior wall akinesis with EF 45- 50 % case discussed with cardiology and ok from cardiology standpoint to discharge home Will need cardiac Rehab referral Follow up appointment with [facility] outpatient (2) Dyslipidemia: Continue High dose starting Will d/c gemfibrozil on discharge (3) Tobacco use disorder: Counseling on tobacco cessation Code status: FULL PCP: [place] DVT px on SCDs/Ambulates Dispo: Follow up with your primary care provider Dr. Ga on 01/01 @ 2:55 PM Follow up with [facility] Cardiology group Total Time Total Time Spent Total Time Spent (In Minutes): 35 minutes Total Time Includes: Examination of the Patient, Discharge Planning, Medication Reconciliation, Communication With Other Providers and Other Discharge Plan Discharge Items Patient Disposition: Home - Self-Care Reason For Visit: STEMI Discharge Diagnosis: ST elevation myocardial infarction (STEMI) of inferior wall Dyslipidemia Tobacco abuse Discharge Goals: Decrease discomfort, Improve disease control, Improve function and Increase independence Activity: Resume your previous activity Activity Comment: as tolerated Non-emergency contact: Primary Care Provider and Flake Drier Call non-emergency contact if: you have any medication questions Follow-up/Referrals: Prakash Maxwell MD [Primary Care Provider] - Diet: Heart Healthy Addtl Provider Instructions: Follow up with your primary care provider Dr. Ga on 01/01 @ 2:55 PM Follow up with [facility] Cardiology group (Office will call you for the appointment) Your physician or your cardiology will arrange for cardiac rehab Continue dual-antiplatelet therapy with aspirin and Brilinta for at least 1 year While on aspirin and Brilinta, please monitor for abnormal bleeding such as blood in stool and urine Please notify your physician or seek medical attention if you develop any abnormal bleeding Check Liver enzymes in 2 weeks while on statin to monitor your liver function (Your physician will order it at your next visit ) Keep the area for the cardiac cath clean and dry to avoid any infection Do not use creams, lotions or ointment on the wound site Do not take a bath, tub soak, go in a Jacuzzi, or swim in a pool or mcdaniels for one week after the procedure. Do not participate in strenuous activities for 3 days after the procedure. Gradually increase your activities until you reach your normal activity level within two days after the procedure. Avoid heavy lifting (more than 10 pounds) and pushing or pulling heavy objects for the first 5 days after the procedure. Prescriptions: New Brilinta 90 mg Tablet 90 mg PO BID 30 Days Qty: 60 RF: 1 atorvastatin 40 mg Tablet 80 mg PO QAM 30 Days Qty: 60 RF: 0 nitroglycerin [Nitrostat] 0.4 mg Tablet, Sublingual 0.4 mg sublingual UD PRN (Reason: chest pain) 30 Days Qty: 30 RF: 0 lisinopril [Zestril] 5 mg Tablet 5 mg PO QAM 30 Days Qty: 30 RF: 0 metoprolol tartrate 25 mg Tablet 25 mg PO BID 30 Days Qty: 60 RF: 0 aspirin [Ecotrin Low Strength] 81 mg Tablet,Delayed Release (Dr/Ec) 81 mg PO QAM 30 Days Qty: 30 RF: 0 Continued multivitamin Tablet 1 tab PO DAILY RF: 0 glucosamine-chondroitin [Osteo Bi-Flex] 250-200 mg Tablet 1 tab PO BID RF: 0 [place]-3 350 mg-235 mg- 90 mg-597 mg Capsule,Delayed Release(Dr/Ec) 1 cap PO DAILY RF: 0 Prostate Control 01-32-57-100 mg Capsule 1 cap PO BID RF: 0 Discontinued gemfibrozil 600 mg Tablet 600 mg PO DAILY RF: 0 Stand-Alone Forms: [facility] Discharge Orders: Discharge Order (Routine); Ordered 12/27/18 Ordered By: Marietta Gamble Admission Data Admit Date/Time: 12/25/18 18:24 Attending Provider: Marietta Gamble Admit Provider: Daljit Jay Primary Care Provider: Prakash Maxwell Other Providers: Christopher Reeves Anas Service: Telemetry Other Interventions: Discharge Summary Assessment (RN) Last Done: 12/27/18 10:11 DC Date/Time DO NOT enter until pt leaves facility: 12/27/18 13:04
== END 2018-12-27 13:04 | disposition home or self-care (01) | DRG 247 ==
LOC: ED 17:06 → CC 17:42 → 1E 18:24 → SUATTDRO 18:24 → 2S 12-26 14:10

== ENCOUNTER 2020-05-17 13:36 | Inpatient (IN) ==
[2020-05-17] MEDS ORDERED: PIPERACILL/TAZOBAC CONSULT ACTIVE PRN ×2 (14:32→22:14)
[2020-05-17] MEDS ORDERED: PIPERACILLIN/TAZOBACTAM 4.5 GM/120 ML BAG IV ONE (14:32)
--- NOTE | 2020-05-17 14:32 | Emergency Department Note ---
Impression & Plan Acute appendicitis, Abdominal pain ED Provider Note NAME: GERARD JESUS AGE: 70 SEX: M : 1950 ARRIVES VIA: Walk-In INFORMANT: Patient, ED PROVIDER(S): Jaziel Griffin MD Chief Complaint: Abdominal pain HPI: Patient does present with abdominal pain beginning Friday. The patient states it is in the right lower quadrant has been intermittent. The patient states having a bowel movement it does get worse. Patient denies any feeling of fevers or chills but does present with a fever today. The patient denies any Covid symptoms including cough, shortness of breath, chest pains, loss of taste or smell. Patient denies any known Covid contacts. Patient has no prior history of any abdominal surgeries. The patient denies any urinary symptoms states he had a negative urinalysis completed at [facility] today and was referred here for further evaluation and treatment. ROS: See HPI for pertinent positives and negatives. A total of 10 systems were reviewed and otherwise negative. Past medical history: See below Surgical history: See below Social history: See below Physical Exam: GENERAL: Wearing a mask. NAD, non-toxic. EYE EXAM: Normal conjunctiva. PERRL, no anisocoria and EOM's grossly intact w/o pain. NECK: Supple, no nuchal rigidity, no adenopathy, non-tender. No signs of meningismus. LUNGS: Clear to auscultation. Normal chest wall mechanics. HEART: NSR, no MRG. ABDOMEN: Abdomen soft, right lower quadrant pain without diffuse peritonitis, positive obturators, negative psoas. Normo-active bowel sounds, no masses, no rebound or guarding. BACK: No CVA TTP. SKIN: No rashes and no bruising. UPPER EXTREMITIES: Upper extremities are grossly normal. LOWER EXTREMITIES: Grossly normal, no edema. NEURO EXAM: A&O x3, cranial nerves II-XII grossly intact, normal speech, moves all 4 extremities on command w/o issue. Differential diagnoses: Appendicitis, testicular torsion, infections, diverticulitis, UTI, obstruction, mesenteric ischemia, aortic pathology, inflammatory bowel disease, renal colic, PUD, pancreatitis, biliary pathology, hernia, volvulus, constipation, as well as other pathologies. Course: Patient was seen and evaluated the bedside. Full history physical exam was performed. EKG: Indication: Prior history of JADON with abdominal pain Imaging Studies: Radiology results as stated below per my review in the radiologist's interpretation: ABDOMEN AND PELVIS CT WITH IV CONTRAST CT DOSE: 788.98 mGy.cm HISTORY: Acute generalized abdominal pain with fever ab pain; fever TECHNIQUE: Multiaxial CT images of the abdomen and pelvis were performed f ollowing the IV administration of 94 cc of Optiray 320, A dose lowering technique was utilized adhering to the principles of ALARA. COMPARISON STUDY: MRI lumbar spine 01/11/2009 FINDINGS: There is mild dependent subsegmental bibasilar atelectasis. No pneumatosis or pneumoperitoneum. Imaged inferior cardiac chambers are unremarkable. The spleen, pancreas and adrenal glands are unremarkable. Layering cholelithiasis within the gallbladder neck. Mild gallbladder distention. No CT evidence of acute cholecystitis. There are a few tiny indeterminate hypodensities of the right hepatic lobe, possibly reflective of cysts. The liver is otherwise unremarkable. Patency of the hepatic and portal veins. Mild nonspecific bilateral perinephric stranding. Renal sinus cysts are noted on the left. A millimeter hypodensity of the anterior aspect inferior pole left kidney suggests renal cyst. Mild prostamegaly. Mild urinary bladder wall thickening. Moderate mixed plaque of the abdominal aorta without aneurysm. Retroverted left renal vein. No adenopathy. No bowel obstruction. Colonic diverticulosis without acute diverticulitis. Likely reactive wall thickening of the cecum. 10 mm appendicolith is noted within the proximal appendiceal lumen. There is mucosal hyperemia within the appendix which is fluid-filled and dilated measuring up to 2.6 cm at the appendiceal tip. Moderate periappendiceal stranding with trace free fluid. No evidence of perforation or drainable fluid collection. Unremarkable soft tissues. Bones appear intact. Degenerative changes of the spine, pelvis and hips. IMPRESSION: 1. Acute appendicitis with moderate periappendiceal inflammatory stranding and trace free fluid. There is a 10 mm appendicolith noted within the proximal appendiceal lumen. No evidence of perforation or drainable fluid collection. 2. No bowel obstruction or pneumoperitoneum. 3. Cholelithiasis. 4. Colonic diverticulosis. 5. Prostamegaly. 6. Additional findings as above. ACT 112: Negative or not required by law. The above report was generated using voice recognition software. It may contain grammatical, syntax or spelling errors. Electronically signed by: oMisés Bethea M.D. 05/17/2020 4:48 PM Dictated: 05/17/201641 Transcribed: 05/17/201641 Cardiac monitoring: An order was placed for continuous cardiac monitoring. The monitor shows a rate of 96 with sinus rhythm. MDM: Patient does present with fever and abdominal pain. Blood work was obtained along with a CT of the abdomen pelvis. Pain and nausea medications were given addition to empiric antibiotics, lactate and blood cultures. The patient does have an acute appendicitis. The patient did receive Zosyn empirically. Patient does have a white count of 15 with mild shift. Given the patient was febrile believe this is more related to the appendicitis. Covid testing was ordered. Urinalysis is negative. I did speak the on-call general surgeon. I spoke with Dr. Yusra MD. Patient was seen and evaluated by the surgeon and the patient was subsequently taken to the operating room for operative treatment. Past Med/Surg History Medical History Dyslipidemia Tobacco use disorder Surgical History History of knee surgery History of shoulder surgery Family History Mother Diabetes Social History Smoking Status: Never smoker Second Hand Exposure: No; Hx Alcohol Use: Yes Alcohol type: beer Hx Substance Use: No Preferred Language: Lao Communication Ability: Effective Design Maker Required: No Beliefs That Will Affect Care: None marital status: Current Living Situation: Spouse Feels Safe at Home: Yes Assistive Devices: None Allergies Allergies Allergy/AdvReac Type Severity Reaction Status Date / Time No Known Allergies Allergy Verified 05/17/20 15:31 Home Meds Home Medications Medication Instructions Recorded Confirmed glucosamine-chondroitin [Osteo 1 tab PO BID 12/25/18 05/17/20 Bi-Flex] multivitamin 1 tab PO QAM 12/25/18 05/17/20 Beta Prostate 1 tab PO BID 05/17/20 05/17/20 aspirin [Aspirin Low Dose] 81 mg PO QAM 11/18/20 11/18/20 clopidogrel 75 mg PO QAM 05/17/20 05/17/20 lisinopril 5 mg PO QAM 05/17/20 05/17/20 metformin 1,000 mg PO DAILY 05/17/20 05/17/20 Previous Rx's Medication Instructions Recorded atorvastatin 80 mg tablet 80 mg PO QPM #90 tab 04/20/19 Results & Data (ED) Vital Signs Vital Signs - 24 hr 05/17/20 13:39 05/17/20 14:51 05/17/20 14:56 Temperature 38.1 C H Temperature Source Oral Pulse Rate 96 H 99 H Pulse Rate [Apical] Pulse Rate [Left Finger] Pulse Rate from SpO2 Sensor 98 H Pulse Rhythm [Apical] Pulse Rhythm [Left Finger] Pulse Strength [Left Finger] Respiratory Rate 18 19 Respiratory Effort / Characteristics Non-Labored Respiratory Depth Normal Respiratory Pattern Blood Pressure 174/76 H 122/68 Blood Pressure [Left Arm] Blood Pressure [Right Arm] Blood Pressure Mean 108 73 Blood Pressure Mean [Left Arm] Blood Pressure Mean [Right Arm] Blood Pressure Position [Left Arm] Blood Pressure Position [Right Arm] Pulse Oximetry 97 93 95 Oxygen Delivery Method Room Air Oxygen Flow Rate Sepsis Recent Fever Within 48 Hours No Sepsis New/Unexplained Change in Mental Status No Sepsis Action Taken by Nursing No Action Required 05/17/20 14:57 05/17/20 14:58 05/17/20 15:00 Temperature Temperature Source Pulse Rate 101 H 100 H Pulse Rate [Apical] Pulse Rate [Left Finger] 100 H Pulse Rate from SpO2 Sensor 88 91 H Pulse Rhythm [Apical] Pulse Rhythm [Left Finger] Pulse Strength [Left Finger] Respiratory Rate 20 23 22 Respiratory Effort / Characteristics Non-Labored Respiratory Depth Normal Respiratory Pattern Blood Pressure 127/70 Blood Pressure [Left Arm] Blood Pressure [Right Arm] 122/68 Blood Pressure Mean 80 Blood Pressure Mean [Left Arm] Blood Pressure Mean [Right Arm] 86 Blood Pressure Position [Left Arm] Blood Pressure Position [Right Arm] Pulse Oximetry 93 93 94 Oxygen Delivery Method Room Air Oxygen Flow Rate Sepsis Recent Fever Within 48 Hours Sepsis New/Unexplained Change in Mental Status Sepsis Action Taken by Nursing 05/17/20 15:01 05/17/20 15:30 05/17/20 15:31 Temperature Temperature Source Pulse Rate 95 H 84 83 Pulse Rate [Apical] Pulse Rate [Left Finger] Pulse Rate from SpO2 Sensor 94 H 83 83 Pulse Rhythm [Apical] Pulse Rhythm [Left Finger] Pulse Strength [Left Finger] Respiratory Rate 22 20 22 Respiratory Effort / Characteristics Respiratory Depth Respiratory Pattern Blood Pressure 116/68 Blood Pressure [Left Arm] Blood Pressure [Right Arm] Blood Pressure Mean 79 Blood Pressure Mean [Left Arm] Blood Pressure Mean [Right Arm] Blood Pressure Position [Left Arm] Blood Pressure Position [Right Arm] Pulse Oximetry 92 95 94 Oxygen Delivery Method Oxygen Flow Rate Sepsis Recent Fever Within 48 Hours Sepsis New/Unexplained Change in Mental Status Sepsis Action Taken by Nursing 05/17/20 16:00 05/17/20 16:17 05/17/20 16:30 Temperature Temperature Source Pulse Rate 89 Pulse Rate [Apical] Pulse Rate [Left Finger] Pulse Rate from SpO2 Sensor 80 90 Pulse Rhythm [Apical] Pulse Rhythm [Left Finger] Pulse Strength [Left Finger] Respiratory Rate 22 Respiratory Effort / Characteristics Respiratory Depth Respiratory Pattern Blood Pressure 133/73 116/61 Blood Pressure [Left Arm] Blood Pressure [Right Arm] Blood Pressure Mean 95 66 Blood Pressure Mean [Left Arm] Blood Pressure Mean [Right Arm] Blood Pressure Position [Left Arm] Blood Pressure Position [Right Arm] Pulse Oximetry 94 96 Oxygen Delivery Method Oxygen Flow Rate Sepsis Recent Fever Within 48 Hours Sepsis New/Unexplained Change in Mental Status Sepsis Action Taken by Nursing 05/17/20 17:00 05/17/20 17:01 05/17/20 18:05 Temperature Temperature Source Pulse Rate 87 88 92 H Pulse Rate [Apical] Pulse Rate [Left Finger] Pulse Rate from SpO2 Sensor 84 89 Pulse Rhythm [Apical] Pulse Rhythm [Left Finger] Pulse Strength [Left Finger] Respiratory Rate 23 20 20 Respiratory Effort / Characteristics Respiratory Depth Respiratory Pattern Blood Pressure 117/63 128/63 Blood Pressure [Left Arm] Blood Pressure [Right Arm] Blood Pressure Mean 74 84 Blood Pressure Mean [Left Arm] Blood Pressure Mean [Right Arm] Blood Pressure Position [Left Arm] Blood Pressure Position [Right Arm] Pulse Oximetry 93 93 97 Oxygen Delivery Method Oxygen Flow Rate Sepsis Recent Fever Within 48 Hours Sepsis New/Unexplained Change in Mental Status Sepsis Action Taken by Nursing 05/17/20 18:06 05/17/20 18:30 05/17/20 18:48 Temperature 38.1 C H Temperature Source Oral Pulse Rate 87 90 Pulse Rate [Apical] Pulse Rate [Left Finger] 87 Pulse Rate from SpO2 Sensor 90 Pulse Rhythm [Apical] Pulse Rhythm [Left Finger] Regular Pulse Strength [Left Finger] Normal Respiratory Rate 22 15 18 Respiratory Effort / Characteristics Non-Labored Spontaneous Respiratory Depth Normal Respiratory Pattern Regular Blood Pressure 128/63 Blood Pressure [Left Arm] Blood Pressure [Right Arm] 111/61 Blood Pressure Mean 94 Blood Pressure Mean [Left Arm] Blood Pressure Mean [Right Arm] 77 Blood Pressure Position [Left Arm] Blood Pressure Position [Right Arm] Semi-fowlers Pulse Oximetry 93 95 Oxygen Delivery Method Room Air Oxygen Flow Rate Sepsis Recent Fever Within 48 Hours Sepsis New/Unexplained Change in Mental Status Sepsis Action Taken by Nursing 05/17/20 20:58 05/17/20 21:05 Temperature 37.0 C Temperature Source Temporal Artery Scan Temporal Artery Scan Pulse Rate Pulse Rate [Apical] 82 81 Pulse Rate [Left Finger] Pulse Rate from SpO2 Sensor Pulse Rhythm [Apical] Regular Regular Pulse Rhythm [Left Finger] Pulse Strength [Left Finger] Respiratory Rate 15 15 Respiratory Effort / Characteristics Non-Labored Spontaneous Non-Labored Spontaneous Respiratory Depth Normal Normal Respiratory Pattern Regular Regular Blood Pressure Blood Pressure [Left Arm] 114/64 135/72 Blood Pressure [Right Arm] Blood Pressure Mean Blood Pressure Mean [Left Arm] 80 93 Blood Pressure Mean [Right Arm] Blood Pressure Position [Left Arm] Semi-fowlers Semi-fowlers Blood Pressure Position [Right Arm] Pulse Oximetry 100 100 Oxygen Delivery Method Oxymask Oxymask Oxygen Flow Rate 10 10 Sepsis Recent Fever Within 48 Hours Sepsis New/Unexplained Change in Mental Status Sepsis Action Taken by Snf Medications Current Medication List: was personally reviewed by me Laboratory Data Attestation: I reviewed the patient's lab results. Result diagrams: 05/17/20 14:30 05/17/20 14:30 Lab Results 05/17/20 05/17/20 05/17/20 Range/Units 14:30 14:30 14:30 WBC 15.22 H (4.8-10.8) K/uL RBC 5.01 (4.7-6.1) M/uL Hgb 15.1 (14.0-18.0) g/dL POC Hgb (14.0-18.0) g/dl Hct 45.2 (42-52) % POC Hct (42-52) % MCV 90.2 (80-100) fL MCH 30.1 (25-34) pg MCHC 33.4 (32-36) g/dL RDW Std Deviation 47.4 H (36.4-46.3) fL RDW Coeff of Rosita 14.4 (11.5-14.5) % Plt Count 147 (130-400) K/uL MPV 11.9 H (7.4-10.4) fL Immature Gran % (Auto) 0.2 % Neut % (Auto) 80.3 % Lymph % (Auto) 9.3 % Placer % (Auto) 10.0 % Eos % (Auto) 0.1 % Baso % (Auto) 0.1 % Neut # (Auto) 12.22 H (1.4-6.5) K/uL Lymph # (Auto) 1.42 (1.2-3.4) K/uL Placer # (Auto) 1.52 H (0.11-0.59) K/uL Eos # (Auto) 0.01 (0-0.5) K/uL Baso # (Auto) 0.02 (0-0.2) K/uL Immature Gran # (Auto) 0.03 H (0.00-0.02) K/uL POC Sodium (135-144) mmol/L Sodium 133 L (136-145) mmol/L POC Potassium (3.3-5.0) mmol/L Potassium 3.9 (3.5-5.1) mmol/L POC Chloride (101-112) mmol/L Chloride 100 (98-107) mmol/L Carbon Dioxide 27 (21-32) mmol/L POC Total CO2 (24-31) mmol/L Anion Gap 6.0 (3-11) POC Anion Gap (16-25) mmol/L POC BUN (7-18) mg/dl BUN 19 H (7-18) mg/dl Creatinine 1.10 (0.6-1.4) mg/dl POC Creatinine (0.6-1.3) mg/dl Est Cr Clr Drug Dosing 74.8 ml/min Est GFR ( Amer) 79.0 Est GFR (Non-Af Amer) 68.1 BUN/Creatinine Ratio 17.2 (10-20) Glucose 127 H (70-99) mg/dl POC Glucose (other) (70-99) mg/dl Lactate (0.4-2.0) mmol/L Calcium 9.4 (8.5-10.1) mg/dl POC Ioniz Calcium Lisette (1.12-1.32) mmol/l Total Bilirubin 1.3 H (0.2-1) mg/dl AST 17 (15-37) U/L ALT 24 (12-78) U/L Alkaline Phosphatase 98 (45-117) U/L Troponin I < 0.015 (0-0.045) ng/ml Total Protein 7.4 (6.4-8.2) gm/dl Albumin 3.7 (3.4-5.0) gm/dl Globulin 3.7 (2.5-4.0) gm/dl Albumin/Globulin Ratio 1.0 (0.9-2) Lipase 107 (73-393) U/L Procalcitonin < 0.05 (0-0.5) ng/ml Urine Color Urine Appearance (Clear) Urine pH (4.5-7.5) Ur Specific [place] (1.000-1.030) Urine Protein (Negative) Urine Glucose (UA) (Negative) Urine Ketones (Negative) Urine Blood (Negative) Urine Nitrite (Negative) Urine Bilirubin (Negative) Urine Urobilinogen (Negative) Ur Leukocyte Esterase (Negative) SARS-CoV-2 Ag (Rapid) (Negative) Blood Type Antibody Screen 05/17/20 05/17/20 05/17/20 Range/Units 14:35 15:26 16:21 WBC (4.8-10.8) K/uL RBC (4.7-6.1) M/uL Hgb (14.0-18.0) g/dL POC Hgb 15.3 (14.0-18.0) g/dl Hct (42-52) % POC Hct 45 (42-52) % MCV (80-100) fL MCH (25-34) pg MCHC (32-36) g/dL RDW Std Deviation (36.4-46.3) fL RDW Coeff of Rosita (11.5-14.5) % Plt Count (130-400) K/uL MPV (7.4-10.4) fL Immature Gran % (Auto) % Neut % (Auto) % Lymph % (Auto) % Placer % (Auto) % Eos % (Auto) % Baso % (Auto) % Neut # (Auto) (1.4-6.5) K/uL Lymph # (Auto) (1.2-3.4) K/uL Placer # (Auto) (0.11-0.59) K/uL Eos # (Auto) (0-0.5) K/uL Baso # (Auto) (0-0.2) K/uL Immature Gran # (Auto) (0.00-0.02) K/uL POC Sodium 133 L (135-144) mmol/L Sodium (136-145) mmol/L POC Potassium 4.2 (3.3-5.0) mmol/L Potassium (3.5-5.1) mmol/L POC Chloride 98 L (101-112) mmol/L Chloride (98-107) mmol/L Carbon Dioxide (21-32) mmol/L POC Total CO2 26 (24-31) mmol/L Anion Gap (3-11) POC Anion Gap 15.0 L (16-25) mmol/L POC BUN 18 (7-18) mg/dl BUN (7-18) mg/dl Creatinine (0.6-1.4) mg/dl POC Creatinine 1.0 (0.6-1.3) mg/dl Est Cr Clr Drug Dosing ml/min Est GFR ( Amer) Est GFR (Non-Af Amer) BUN/Creatinine Ratio (10-20) Glucose (70-99) mg/dl POC Glucose (other) 127 H (70-99) mg/dl Lactate 1.3 (0.4-2.0) mmol/L Calcium (8.5-10.1) mg/dl POC Ioniz Calcium Lisette 1.12 (1.12-1.32) mmol/l Total Bilirubin (0.2-1) mg/dl AST (15-37) U/L ALT (12-78) U/L Alkaline Phosphatase (45-117) U/L Troponin I (0-0.045) ng/ml Total Protein (6.4-8.2) gm/dl Albumin (3.4-5.0) gm/dl Globulin (2.5-4.0) gm/dl Albumin/Globulin Ratio (0.9-2) Lipase (73-393) U/L Procalcitonin (0-0.5) ng/ml Urine Color Yellow Urine Appearance Clear (Clear) Urine pH 6.5 (4.5-7.5) Ur Specific [place] 1.008 (1.000-1.030) Urine Protein Negative (Negative) Urine Glucose (UA) Negative (Negative) Urine Ketones Negative (Negative) Urine Blood Negative (Negative) Urine Nitrite Negative (Negative) Urine Bilirubin Negative (Negative) Urine Urobilinogen Negative (Negative) Ur Leukocyte Esterase Negative (Negative) SARS-CoV-2 Ag (Rapid) (Negative) Blood Type Antibody Screen 05/17/20 05/17/20 Range/Units 17:26 18:26 WBC (4.8-10.8) K/uL RBC (4.7-6.1) M/uL Hgb (14.0-18.0) g/dL POC Hgb (14.0-18.0) g/dl Hct (42-52) % POC Hct (42-52) % MCV (80-100) fL MCH (25-34) pg MCHC (32-36) g/dL RDW Std Deviation (36.4-46.3) fL RDW Coeff of Rosita (11.5-14.5) % Plt Count (130-400) K/uL MPV (7.4-10.4) fL Immature Gran % (Auto) % Neut % (Auto) % Lymph % (Auto) % Placer % (Auto) % Eos % (Auto) % Baso % (Auto) % Neut # (Auto) (1.4-6.5) K/uL Lymph # (Auto) (1.2-3.4) K/uL Placer # (Auto) (0.11-0.59) K/uL Eos # (Auto) (0-0.5) K/uL Baso # (Auto) (0-0.2) K/uL Immature Gran # (Auto) (0.00-0.02) K/uL POC Sodium (135-144) mmol/L Sodium (136-145) mmol/L POC Potassium (3.3-5.0) mmol/L Potassium (3.5-5.1) mmol/L POC Chloride (101-112) mmol/L Chloride (98-107) mmol/L Carbon Dioxide (21-32) mmol/L POC Total CO2 (24-31) mmol/L Anion Gap (3-11) POC Anion Gap (16-25) mmol/L POC BUN (7-18) mg/dl BUN (7-18) mg/dl Creatinine (0.6-1.4) mg/dl POC Creatinine (0.6-1.3) mg/dl Est Cr Clr Drug Dosing ml/min Est GFR ( Amer) Est GFR (Non-Af Amer) BUN/Creatinine Ratio (10-20) Glucose (70-99) mg/dl POC Glucose (other) (70-99) mg/dl Lactate (0.4-2.0) mmol/L Calcium (8.5-10.1) mg/dl POC Ioniz Calcium Lisette (1.12-1.32) mmol/l Total Bilirubin (0.2-1) mg/dl AST (15-37) U/L ALT (12-78) U/L Alkaline Phosphatase (45-117) U/L Troponin I (0-0.045) ng/ml Total Protein (6.4-8.2) gm/dl Albumin (3.4-5.0) gm/dl Globulin (2.5-4.0) gm/dl Albumin/Globulin Ratio (0.9-2) Lipase (73-393) U/L Procalcitonin (0-0.5) ng/ml Urine Color Urine Appearance (Clear) Urine pH (4.5-7.5) Ur Specific [place] (1.000-1.030) Urine Protein (Negative) Urine Glucose (UA) (Negative) Urine Ketones (Negative) Urine Blood (Negative) Urine Nitrite (Negative) Urine Bilirubin (Negative) Urine Urobilinogen (Negative) Ur Leukocyte Esterase (Negative) SARS-CoV-2 Ag (Rapid) Negative (Negative) Blood Type A Positive Antibody Screen NEGATIVE Administered Medications Discontinued Medications Bupivacaine HCl (Bupivacaine 0.5 % 5 Mg/1 Ml Mpf 30ml Vial) Confirm Administered Dose 30 ml .ROUTE .Sypherlink ONE Stop: 05/17/20 18:34 Last Admin: 05/17/20 20:16 Dose: 30 ml Documented by: [id number] Cefazolin Sodium (Cefazolin 2,000 Mg/15 Ml Iv Push) Confirm Administered Dose 2,000 mg IV .Beyond Verbal-MED ONE Stop: 05/17/20 18:33 Last Admin: 05/17/20 18:56 Dose: 2,000 mg Documented by: [id number] Cefazolin Sodium (Cefazolin 250 Mg/Ml 1 Gm Vial) Confirm Administered Dose 1,000 mg .ROUTE .STK-MED ONE Stop: 05/17/20 18:34 Last Admin: 05/17/20 19:06 Dose: Not Given Documented by: [id number] Heparin Sodium (Porcine) (Heparin (Porcine) 1000 Unit/Ml 10 Ml (Wheelage Clerk Use Only)) Confirm Administered Dose 10,000 units .ROUTE .STK-MED ONE Stop: 05/17/20 18:34 Last Admin: 05/17/20 20:34 Dose: 10,000 units Documented by: [id number] Piperacillin Sod/Tazobactam Sod (Zosyn) 4.5 gm in 120 mls @ 240 mls/hr IV NOW ONE Stop: 05/17/20 15:01 Last Infusion: 05/17/20 16:08 Dose: 0 mls/hr Documented by: [id number] Admin: 05/17/20 15:12 Dose: 240 mls/hr Documented by: [id number] Sodium Chloride (Nss 1000ml) 1,000 mls @ 999 mls/hr IV .Q1H1M ONE Stop: 05/17/20 15:34 Last Infusion: 05/17/20 16:18 Dose: 0 mls/hr Documented by: [id number] Admin: 05/17/20 15:11 Dose: 999 mls/hr Documented by: [id number] Acetaminophen (Ofirmev) 65 mls @ 200 mls/hr IV NOW ONE; Protocol Stop: 05/17/20 14:53 Last Infusion: 05/17/20 16:41 Dose: 0 mls/hr Documented by: [id number] Admin: 05/17/20 16:17 Dose: 200 mls/hr Documented by: [id number] Ioversol (Ioversol 100ml) 94 ml IV ONCE ONE Stop: 05/17/20 16:40 Last Admin: 05/17/20 16:39 Dose: 94 ml Documented by: [id number] Miscellaneous ( Floseal Hemostatic Matrix 10ml) 10 ml TOP ONCE ONE Stop: 05/17/20 20:11 Last Admin: 05/17/20 20:28 Dose: 10 ml Documented by: [id number] Morphine Sulfate (Morphine Sulfate 2 Mg/Ml Carp) 2 mg IV NOW STA Stop: 05/17/20 14:35 Last Admin: 05/17/20 15:13 Dose: 2 mg Documented by: [id number] Ondansetron HCl (Ondansetron Inj 2 Mg/Ml 2 Ml Vial) 4 mg IV NOW STA Stop: 05/17/20 14:35 Last Admin: 05/17/20 15:12 Dose: 4 mg Documented by: [id number] Discharge Plan Visit Data Chief Complaint: Abdominal Pain Stated Complaint: ABDOMINAL PAIN SENT BY DR ED Provider: Jaziel Griffin Discharge Problem: Acute appendicitis, Abdominal pain Patient Disposition: Still a Patient Discharge Instructions Interventions: ED Discharge Assessment Last Done: 05/17/20 18:25 Discharge Problem: Acute appendicitis Qualifiers: Acute appendicitis type: with localized peritonitis Appendicitis gangrene presence: without gangrene Appendicitis perforation presence: without perforation Appendicitis abscess presence: without abscess Qualified Code(s): K35.30 - Acute appendicitis with localized peritonitis, without perforation or gangrene Abdominal pain Qualifiers: Abdominal location: right lower quadrant Qualified Code(s): R10.31 - Right lower quadrant pain
[2020-05-17] MEDS ORDERED: SODIUM CHLORIDE 0.9% 1000ML 1,000 ML IV ONE (14:34)
[2020-05-17] MEDS ORDERED: ONDANSETRON INJ 2 MG/ML 2 ML VIAL IV STA (14:34)
[2020-05-17] MEDS ORDERED: MoRPHine SULFATE 2 MG/ML CARP IV STA (14:34)
[2020-05-17] MEDS ORDERED: ACETAMINOPHEN 65 ML IV ONE (14:34)
[2020-05-17 14:57] LABS: Basophils # (auto) 0.02 K/uL (0-0.2); Basophils % (auto) 0.1 %; Eosinophils # (auto) 0.01 K/uL (0-0.5); Eosinophils % (auto) 0.1 %; Hematocrit (blood only) 45.2 % (42-52); Hemoglobin 15.1 g/dL (14.0-18.0); Immature Granulocytes # (auto) 0.03 K/uL (0.00-0.02); Immature Granulocytes % (auto) 0.2 %; Lymphocytes # (auto) 1.42 K/uL (1.2-3.4); Lymphocytes % (auto) 9.3 %; Mean Corpuscular Hemoglobin 30.1 pg (25-34); Mean Corpuscular Hgb Conc 33.4 g/dL (32-36); Mean Corpuscular Volume 90.2 fL (80-100); Mean Platelet Volume 11.9 fL (7.4-10.4); Monocytes # (auto) 1.52 K/uL (0.11-0.59); Neutrophils # (auto) 12.22 K/uL (1.4-6.5); Neutrophils % (auto) 80.3 %; Platelet Count 147 K/uL (130-400); RDW Coefficient of Variation 14.4 % (11.5-14.5); RDW Standard Deviation 47.4 fL (36.4-46.3); Red Blood Count 5.01 M/uL (4.7-6.1); White Blood Count 15.22 K/uL (4.8-10.8)
[2020-05-17 15:28] LABS: Alanine Aminotransferase 24 U/L (12-78); Albumin Level 3.7 gm/dl (3.4-5.0); Aspartate Aminotransferase 17 U/L (15-37); BUN Creatinine Ratio 17.2 (10-20); Blood Urea Nitrogen 19 mg/dl (7-18); Calcium 9.4 mg/dl (8.5-10.1); Carbon Dioxide 27 mmol/L (21-32); Chloride 100 mmol/L (98-107); Creatinine Clr Calc Pharmacy 74.8 ml/min; Est GFR (Non-African American) 68.1; Glucose 127 mg/dl (70-99); Lipase 107 U/L (73-393); Potassium 3.9 mmol/L (3.5-5.1); Sodium 133 mmol/L (136-145)
[2020-05-17 15:32] LABS: Alkaline Phosphatase 98 U/L (45-117); Bilirubin,Total 1.3 mg/dl (0.2-1); Globulin 3.7 gm/dl (2.5-4.0); Total Protein 7.4 gm/dl (6.4-8.2); Troponin I < 0.015 ng/ml (0-0.045)
[2020-05-17 15:39] LABS: iSTAT Hemoglobin 15.3 g/dl (14.0-18.0); iSTAT Ionized Calcium 1.12 mmol/l (1.12-1.32); iSTAT Potassium 4.2 mmol/L (3.3-5.0)
--- NOTE | 2020-05-17 15:39 | Electrocardiogram Report ---
Test Reason : Blood Pressure : / mmHG Vent. Rate : 098 BPM Atrial Rate : 098 BPM P-R Int : 170 ms QRS Dur : 100 ms QT Int : 334 ms P-R-T Axes : 024 -45 027 degrees QTc Int : 426 ms Sinus rhythm with Premature supraventricular complexes Incomplete right bundle branch block Left anterior fascicular block Abnormal ECG When compared with ECG of 26-DEC-2018 10:20, Significant changes have occurred Confirmed by Inderjit Baum ([id number]) on 05/17/2020 3:38:44 PM Referred By: REFERRED SELF Confirmed By:Inderjit Baum
[2020-05-17] MEDS ORDERED: IOVERSOL 100ml IV ONE (16:39)
[2020-05-17 16:47] LABS: Appearance Urine Clear (Clear); Bilirubin Urine Negative (Negative); Blood Urine Negative (Negative); Color Urine Yellow; Glucose Urine UA Negative (Negative); Ketones Urine Negative (Negative); Leukocyte Esterase Urine Negative (Negative); Nitrite Urine Negative (Negative); Protein Urine Negative (Negative); Specific Gravity Urine 1.008 (1.000-1.030); Urobilinogen Urine Negative (Negative); pH Urine 6.5 (4.5-7.5)
--- NOTE | 2020-05-17 16:50 | CT Scan Report ---
ABDOMEN AND PELVIS CT WITH IV CONTRAST CT DOSE: 788.98 mGy.cm HISTORY: Acute generalized abdominal pain with fever ab pain; fever TECHNIQUE: Multiaxial CT images of the abdomen and pelvis were performed following the IV administrat ion of 94 cc of Optiray 320, A dose lowering technique was utilized adhering to the principles of AL LULI. COMPARISON STUDY: MRI lumbar spine 01/11/2009 FINDINGS: There is mild dependent subsegmental bibasilar atelectasis. No pneumatosis or pneumoperiton eum. Imaged inferior cardiac chambers are unremarkable. The spleen, pancreas and adrenal glands are u nremarkable. Layering cholelithiasis within the gallbladder neck. Mild gallbladder distention. No CT evidence of acute cholecystitis. There are a few tiny indeterminate hypodensities of the right hepati c lobe, possibly reflective of cysts. The liver is otherwise unremarkable. Patency of the hepatic and portal veins. Mild nonspecific bilateral perinephric stranding. Renal sinus cysts are noted on the left. A millimet er hypodensity of the anterior aspect inferior pole left kidney suggests renal cyst. Mild prostamegal y. Mild urinary bladder wall thickening. Moderate mixed plaque of the abdominal aorta without aneurys m. Retroverted left renal vein. No adenopathy. No bowel obstruction. Colonic diverticulosis without acute diverticulitis. Likely reactive wall thick ening of the cecum. 10 mm appendicolith is noted within the proximal appendiceal lumen. There is muco rehtt hyperemia within the appendix which is fluid-filled and dilated measuring up to 2.6 cm at the kelli endiceal tip. Moderate periappendiceal stranding with trace free fluid. No evidence of perforation or drainable fluid collection. Unremarkable soft tissues. Bones appear intact. Degenerative changes of the spine, pelvis and hips. IMPRESSION: 1. Acute appendicitis with moderate periappendiceal inflammatory stranding and trace free fluid. Ther e is a 10 mm appendicolith noted within the proximal appendiceal lumen. No evidence of perforation or drainable fluid collection. 2. No bowel obstruction or pneumoperitoneum. 3. Cholelithiasis. 4. Colonic diverticulosis. 5. Prostamegaly. 6. Additional findings as above. ACT 112: Negative or not required by law. The above report was generated using voice recognition software. It may contain grammatical, syntax o r spelling errors. Electronically signed by: Moisés Bethea M.D. 05/17/2020 4:48 PM
--- NOTE | 2020-05-17 18:00 | Anesthesiology Consultation ---
Date of Service May 17, 2020 Assessment & Plan Chart Review Chart Review: Acceptable Risk for Surgery and Patient NOT seen in Pre Admission Testing Consults Requested none ASA [id number] Proposed Anesthesia Anesthesia Type: General History Surgery Operation Date: 05/17/20 18:30 Proposed Procedures p Laparoscopic Appendectomy - Brayden Meng MD Height/Weight Height: 5 ft 10 in Weight: 99.2 kg Allergies Allergy/AdvReac Type Severity Reaction Status Date / Time No Known Allergies Allergy Verified 05/17/20 15:31 Medications Home Medications Medication Instructions Recorded Confirmed Last Taken glucosamine-chondroitin [Osteo 1 tab PO BID 12/25/18 05/17/20 05/17/20 Bi-Flex] AM DOSE multivitamin 1 tab PO QAM 12/25/18 05/17/20 05/17/20 atorvastatin 80 mg tablet 80 mg PO QPM #90 tab 04/20/19 05/17/20 05/16/20 Beta Prostate 1 tab PO BID 05/17/20 05/17/20 05/17/20 AM DOSE aspirin [Aspirin Low Dose] 81 mg PO QAM 05/17/20 05/17/20 05/17/20 clopidogrel 75 mg PO QAM 05/17/20 05/17/20 05/17/20 lisinopril 5 mg PO QAM 05/17/20 05/17/20 05/17/20 metformin 500 mg PO DAILY 05/17/20 05/17/20 05/16/20 Past Medical History Medical History Dyslipidemia Tobacco use disorder Exercise / Class Metabolic Activity III < 4 Walking/Shop/Light housework Past Family History Family History Mother Diabetes Past Surgical History Surgical History History of knee surgery History of shoulder surgery Past Anesthesia History No Hx of Anesthesia Complications and No Family Hx of Anesthesia Complications History of PONV No Hx of PONV and No Hx of Motion Sickness Social History Smoking Status: Never smoker tobacco type: smokeless tobacco Hx Alcohol Use: Yes Alcohol type: beer alcohol intake frequency: a few times a month Hx Substance Use: No substance use type: does not use Physical Exam Vital Signs Last Vital Signs Temp 38.1 C H 05/17/20 13:39 Pulse 88 05/17/20 17:01 Resp 20 05/17/20 17:01 BP 117/63 05/17/20 17:00 Pulse Ox 93 05/17/20 17:01 Testing Laboratory Results 05/17/20 14:30 05/17/20 14:30 Urine Color Yellow 05/17/20 16:21 Urine Appearance Clear (Clear) 05/17/20 16:21 Urine pH 6.5 (4.5-7.5) 05/17/20 16:21 Ur Specific [place] 1.008 (1.000-1.030) 05/17/20 16:21 Urine Protein Negative (Negative) 05/17/20 16:21 Urine Glucose (UA) Negative (Negative) 05/17/20 16:21 Urine Ketones Negative (Negative) 05/17/20 16:21 Urine Nitrite Negative (Negative) 05/17/20 16:21 Ur Leukocyte Esterase Negative (Negative) 05/17/20 16:21 05/17/20 15:26 POC Glucose (other) 127 H Electrocardiogram Date: 05/17/20 SR w/PSVC's at 98;IRBBB;LAFB Echocardiogram Date: 12/26/18 EF: 45% LV Function: dysfunctional RWMA: + akinetic (iNFERIOR WALL ak) Other Findings: + LVH Valvular Disease: + no significant valvular disease Cardiac Catheterization Date: 12/25/18 Findings: + RCA (30-40%), + LMA (li'S) and + LCX (MID 100%-0% AFTER tamra) Intervention: + PCI and + TAMRA placed
[2020-05-17] MEDS ORDERED: DEXAMETHASONE SOD INJ 4 MG/ML VIAL ONE (18:04)
[2020-05-17] MEDS ORDERED: GLYCOPYRROLATE 0.2 MG/ML VIAL ONE ×2 (18:04→20:22)
[2020-05-17] MEDS ORDERED: ONDANSETRON INJ 2 MG/ML 2 ML VIAL ONE (18:04)
[2020-05-17] MEDS ORDERED: NEOSTIGMINE METHYLSULFATE 5 MG/5 ML SYR ONE ×2 (18:04→20:22)
[2020-05-17] MEDS ORDERED: fentaNYL citrate 100 MCG/2 ML VIAL ONE ×2 (18:04)
[2020-05-17] MEDS ORDERED: MIDAZOLAM HCL 1 MG/ML 2ML VIAL ONE (18:04)
[2020-05-17] MEDS ORDERED: LIDOCAINE HCL 2% 2 ML VIAL/AMP(20MG/ML) INFIL ONE (18:04)
[2020-05-17] MEDS ORDERED: PROPOFOL IV EMULSION 10 MG/ML 20 ML VIAL IV ONE (18:04)
[2020-05-17] MEDS ORDERED: LARYING-O-JET KIT (LTA) ONE (18:09)
[2020-05-17] MEDS ORDERED: ROCURONIUM BROMIDE 10 MG/ML 5 ML VIAL IV ONE (18:09)
--- NOTE | 2020-05-17 18:16 | History & Physical Report ---
Date of Service May 17, 2020 Assessment & Plan (1) Acute appendicitis: Admission and Anticipated Discharge Date Admission Date: This patient's history, physical findings, laboratories and CT findings are consistent with appendicitis. I have recommended a laparoscopic appendectomy. I would not recommend antibiotic therapy as the patient has an appendicolith. I explained the possible need to convert to an open procedure. I explained the possible complications associated with those procedures. The patient wishes to go ahead with surgery and has signed a consent form. History of Present Illness Chief Complaint: Right lower quadrant pain Primary Care Provider: Prakash Maxwell MD This is a 70-year-old male who presented to the emergency room with a complaint of abdominal pain. It began as a generalized abdominal discomfort 2 nights ago. The pain then migrated and increased to a sharp pain and is now located in the right lower quadrant. He has never had pain like this before. The pain is exacerbated by motion. He had no fever or chills. He had no nausea or vomiting. He has had some constipation recently but no melena or hematochezia. He denies dysuria and hematuria. Allergies Allergy/AdvReac Type Severity Reaction Status Date / Time No Known Allergies Allergy Verified 05/17/20 15:31 Home Medications Medication Instructions Recorded Confirmed Type glucosamine-chondroitin [Osteo 1 tab PO BID 12/25/18 05/17/20 History Bi-Flex] multivitamin 1 tab PO QAM 12/25/18 05/17/20 History atorvastatin 80 mg tablet 80 mg PO QPM #90 tab 04/20/19 05/17/20 Rx Beta Prostate 1 tab PO BID 05/17/20 05/17/20 History aspirin [Aspirin Low Dose] 81 mg PO QAM 05/17/20 05/17/20 History clopidogrel 75 mg PO QAM 05/17/20 05/17/20 History lisinopril 5 mg PO QAM 05/17/20 05/17/20 History metformin 500 mg PO DAILY 05/17/20 05/17/20 History Past Med/Surg History Medical History (Updated 05/17/20 @ 18:10 by Jaziel Griffin MD) Dyslipidemia Tobacco use disorder Surgical History History of knee surgery History of shoulder surgery Family History Mother Diabetes Social History Smoking Status: Never smoker Second Hand Exposure: No; Hx Alcohol Use: Yes Alcohol type: beer Hx Substance Use: No Preferred Language: Sinhala Communication Ability: Effective Mercury Cell Cleaner Required: No Beliefs That Will Affect Care: None marital status: Current Living Situation: Spouse Feels Safe at Home: Yes Assistive Devices: None Review of Systems Review of Systems: All systems reviewed & are unremarkable except as noted in HPI & below Physical Exam Constitutional: no acute distress Respiratory: normal respiratory effort, lungs clear to auscultation Cardiovascular: Rate/Rhythm: regular rate and regular rhythm Gastrointestinal (Abdomen): Inspection/Auscultation: normal bowel sounds; abdomen not distended Percussion/Palpation: + abdomen tender (Right lower quadrant) and abdomen soft Skin: no rashes, warm and dry Lymphatic: no cervical lymphadenopathy Results & Data Results & Data ([facility]) Vital Signs (Past 12 Hours) Vital Signs Temp Pulse Pulse Resp BP BP Pulse Ox 05/17/20 18:05 92 H 20 128/63 97 05/17/20 17:01 88 20 93 05/17/20 17:00 87 23 117/63 93 05/17/20 16:30 116/61 05/17/20 16:17 89 22 133/73 96 05/17/20 16:00 94 05/17/20 15:31 83 22 94 05/17/20 15:30 84 20 116/68 95 05/17/20 15:01 95 H 22 92 05/17/20 15:00 100 H 22 127/70 94 05/17/20 14:58 101 H 23 93 05/17/20 14:57 100 H 20 122/68 93 05/17/20 14:56 95 05/17/20 14:51 99 H 19 122/68 93 05/17/20 13:39 38.1 C H 96 H 18 174/76 H 97 Laboratory Results 05/17/20 05/17/20 05/17/20 Range/Units 17:26 16:21 15:26 WBC (4.8-10.8) K/uL RBC (4.7-6.1) M/uL Hgb (14.0-18.0) g/dL POC Hgb 15.3 (14.0-18.0) g/dl Hct (42-52) % POC Hct 45 (42-52) % MCV (80-100) fL MCH (25-34) pg MCHC (32-36) g/dL RDW Std Deviation (36.4-46.3) fL RDW Coeff of Rosita (11.5-14.5) % Plt Count (130-400) K/uL MPV (7.4-10.4) fL Immature Gran % (Auto) % Neut % (Auto) % Lymph % (Auto) % Cole % (Auto) % Eos % (Auto) % Baso % (Auto) % Neut # (Auto) (1.4-6.5) K/uL Lymph # (Auto) (1.2-3.4) K/uL Cole # (Auto) (0.11-0.59) K/uL Eos # (Auto) (0-0.5) K/uL Baso # (Auto) (0-0.2) K/uL Immature Gran # (Auto) (0.00-0.02) K/uL POC Sodium 133 L (135-144) mmol/L Sodium (136-145) mmol/L POC Potassium 4.2 (3.3-5.0) mmol/L Potassium (3.5-5.1) mmol/L POC Chloride 98 L (101-112) mmol/L Chloride (98-107) mmol/L Carbon Dioxide (21-32) mmol/L POC Total CO2 26 (24-31) mmol/L Anion Gap (3-11) POC Anion Gap 15.0 L (16-25) mmol/L POC BUN 18 (7-18) mg/dl BUN (7-18) mg/dl Creatinine (0.6-1.4) mg/dl POC Creatinine 1.0 (0.6-1.3) mg/dl Est Cr Clr Drug Dosing ml/min Est GFR ( Amer) Est GFR (Non-Af Amer) BUN/Creatinine Ratio (10-20) Glucose (70-99) mg/dl POC Glucose (other) 127 H (70-99) mg/dl Lactate (0.4-2.0) mmol/L Calcium (8.5-10.1) mg/dl POC Ioniz Calcium Lisette 1.12 (1.12-1.32) mmol/l Total Bilirubin (0.2-1) mg/dl AST (15-37) U/L ALT (12-78) U/L Alkaline Phosphatase (45-117) U/L Troponin I (0-0.045) ng/ml Total Protein (6.4-8.2) gm/dl Albumin (3.4-5.0) gm/dl Globulin (2.5-4.0) gm/dl Albumin/Globulin Ratio (0.9-2) Lipase (73-393) U/L Procalcitonin (0-0.5) ng/ml Urine Color Yellow Urine Appearance Clear (Clear) Urine pH 6.5 (4.5-7.5) Ur Specific [place] 1.008 (1.000-1.030) Urine Protein Negative (Negative) Urine Glucose (UA) Negative (Negative) Urine Ketones Negative (Negative) Urine Blood Negative (Negative) Urine Nitrite Negative (Negative) Urine Bilirubin Negative (Negative) Urine Urobilinogen Negative (Negative) Ur Leukocyte Esterase Negative (Negative) SARS-CoV-2 Ag (Rapid) Negative (Negative) 05/17/20 05/17/20 05/17/20 Range/Units 14:35 14:30 14:30 WBC (4.8-10.8) K/uL RBC (4.7-6.1) M/uL Hgb (14.0-18.0) g/dL POC Hgb (14.0-18.0) g/dl Hct (42-52) % POC Hct (42-52) % MCV (80-100) fL MCH (25-34) pg MCHC (32-36) g/dL RDW Std Deviation (36.4-46.3) fL RDW Coeff of Rosita (11.5-14.5) % Plt Count (130-400) K/uL MPV (7.4-10.4) fL Immature Gran % (Auto) % Neut % (Auto) % Lymph % (Auto) % Cole % (Auto) % Eos % (Auto) % Baso % (Auto) % Neut # (Auto) (1.4-6.5) K/uL Lymph # (Auto) (1.2-3.4) K/uL Cole # (Auto) (0.11-0.59) K/uL Eos # (Auto) (0-0.5) K/uL Baso # (Auto) (0-0.2) K/uL Immature Gran # (Auto) (0.00-0.02) K/uL POC Sodium (135-144) mmol/L Sodium 133 L (136-145) mmol/L POC Potassium (3.3-5.0) mmol/L Potassium 3.9 (3.5-5.1) mmol/L POC Chloride (101-112) mmol/L Chloride 100 (98-107) mmol/L Carbon Dioxide 27 (21-32) mmol/L POC Total CO2 (24-31) mmol/L Anion Gap 6.0 (3-11) POC Anion Gap (16-25) mmol/L POC BUN (7-18) mg/dl BUN 19 H (7-18) mg/dl Creatinine 1.10 (0.6-1.4) mg/dl POC Creatinine (0.6-1.3) mg/dl Est Cr Clr Drug Dosing 74.8 ml/min Est GFR ( Amer) 79.0 Est GFR (Non-Af Amer) 68.1 BUN/Creatinine Ratio 17.2 (10-20) Glucose 127 H (70-99) mg/dl POC Glucose (other) (70-99) mg/dl Lactate 1.3 (0.4-2.0) mmol/L Calcium 9.4 (8.5-10.1) mg/dl POC Ioniz Calcium Lisette (1.12-1.32) mmol/l Total Bilirubin 1.3 H (0.2-1) mg/dl AST 17 (15-37) U/L ALT 24 (12-78) U/L Alkaline Phosphatase 98 (45-117) U/L Troponin I < 0.015 (0-0.045) ng/ml Total Protein 7.4 (6.4-8.2) gm/dl Albumin 3.7 (3.4-5.0) gm/dl Globulin 3.7 (2.5-4.0) gm/dl Albumin/Globulin Ratio 1.0 (0.9-2) Lipase 107 (73-393) U/L Procalcitonin < 0.05 (0-0.5) ng/ml Urine Color Urine Appearance (Clear) Urine pH (4.5-7.5) Ur Specific [place] (1.000-1.030) Urine Protein (Negative) Urine Glucose (UA) (Negative) Urine Ketones (Negative) Urine Blood (Negative) Urine Nitrite (Negative) Urine Bilirubin (Negative) Urine Urobilinogen (Negative) Ur Leukocyte Esterase (Negative) SARS-CoV-2 Ag (Rapid) (Negative) 05/17/20 Range/Units 14:30 WBC 15.22 H (4.8-10.8) K/uL RBC 5.01 (4.7-6.1) M/uL Hgb 15.1 (14.0-18.0) g/dL POC Hgb (14.0-18.0) g/dl Hct 45.2 (42-52) % POC Hct (42-52) % MCV 90.2 (80-100) fL MCH 30.1 (25-34) pg MCHC 33.4 (32-36) g/dL RDW Std Deviation 47.4 H (36.4-46.3) fL RDW Coeff of Rosita 14.4 (11.5-14.5) % Plt Count 147 (130-400) K/uL MPV 11.9 H (7.4-10.4) fL Immature Gran % (Auto) 0.2 % Neut % (Auto) 80.3 % Lymph % (Auto) 9.3 % Cole % (Auto) 10.0 % Eos % (Auto) 0.1 % Baso % (Auto) 0.1 % Neut # (Auto) 12.22 H (1.4-6.5) K/uL Lymph # (Auto) 1.42 (1.2-3.4) K/uL Cole # (Auto) 1.52 H (0.11-0.59) K/uL Eos # (Auto) 0.01 (0-0.5) K/uL Baso # (Auto) 0.02 (0-0.2) K/uL Immature Gran # (Auto) 0.03 H (0.00-0.02) K/uL POC Sodium (135-144) mmol/L Sodium (136-145) mmol/L POC Potassium (3.3-5.0) mmol/L Potassium (3.5-5.1) mmol/L POC Chloride (101-112) mmol/L Chloride (98-107) mmol/L Carbon Dioxide (21-32) mmol/L POC Total CO2 (24-31) mmol/L Anion Gap (3-11) POC Anion Gap (16-25) mmol/L POC BUN (7-18) mg/dl BUN (7-18) mg/dl Creatinine (0.6-1.4) mg/dl POC Creatinine (0.6-1.3) mg/dl Est Cr Clr Drug Dosing ml/min Est GFR ( Amer) Est GFR (Non-Af Amer) BUN/Creatinine Ratio (10-20) Glucose (70-99) mg/dl POC Glucose (other) (70-99) mg/dl Lactate (0.4-2.0) mmol/L Calcium (8.5-10.1) mg/dl POC Ioniz Calcium Lis[place] (1.12-1.32) mmol/l Total Bilirubin (0.2-1) mg/dl AST (15-37) U/L ALT (12-78) U/L Alkaline Phosphatase (45-117) U/L Troponin I (0-0.045) ng/ml Total Protein (6.4-8.2) gm/dl Albumin (3.4-5.0) gm/dl Globulin (2.5-4.0) gm/dl Albumin/Globulin Ratio (0.9-2) Lipase (73-393) U/L Procalcitonin (0-0.5) ng/ml Urine Color Urine Appearance (Clear) Urine pH (4.5-7.5) Ur Specific [place] (1.000-1.030) Urine Protein (Negative) Urine Glucose (UA) (Negative) Urine Ketones (Negative) Urine Blood (Negative) Urine Nitrite (Negative) Urine Bilirubin (Negative) Urine Urobilinogen (Negative) Ur Leukocyte Esterase (Negative) SARS-CoV-2 Ag (Rapid) (Negative) Diagnostic Findings ABDOMEN AND PELVIS CT WITH IV CONTRAST CT DOSE: 788.98 mGy.cm HISTORY: Acute generalized abdominal pain with fever ab pain; fever TECHNIQUE: Multiaxial CT images of the abdomen and pelvis were performed following the IV administration of 94 cc of Optiray 320, A dose lowering technique was utilized adhering to the principles of ALARA. COMPARISON STUDY: MRI lumbar spine 01/11/2009 FINDINGS: There is mild dependent subsegmental bibasilar atelectasis. No pneumatosis or pneumoperitoneum. Imaged inferior cardiac chambers are unremarkable. The spleen, pancreas and adrenal glands are unremarkable. Layering cholelithiasis within the gallbladder neck. Mild gallbladder distention. No CT evidence of acute cholecystitis. There are a few tiny indeterminate hypodensities of the right hepatic lobe, possibly reflective of cysts. The liver is otherwise unremarkable. Patency of the hepatic and portal veins. Mild nonspecific bilateral perinephric stranding. Renal sinus cysts are noted on the left. A millimeter hypodensity of the anterior aspect inferior pole left kidney suggests renal cyst. Mild prostamegaly. Mild urinary bladder wall thickening. Moderate mixed plaque of the abdominal aorta without aneurysm. Retroverted left renal vein. No adenopathy. No bowel obstruction. Colonic diverticulosis without acute diverticulitis. Likely reactive wall thickening of the cecum. 10 mm appendicolith is noted within the proximal appendiceal lumen. There is mucosal hyperemia within the appendix which is fluid-filled and dilated measuring up to 2.6 cm at the appendiceal tip. Moderate periappendiceal stranding with trace free fluid. No evidence of perforation or drainable fluid collection. Unremarkable soft tissues. Bones appear intact. Degenerative changes of the spine, pelvis and hips. IMPRESSION: 1. Acute appendicitis with moderate periappendiceal inflammatory stranding and trace free fluid. There is a 10 mm appendicolith noted within the proximal appendiceal lumen. No evidence of perforation or drainable fluid collection. 2. No bowel obstruction or pneumoperitoneum. 3. Cholelithiasis. 4. Colonic diverticulosis. 5. Prostamegaly. 6. Additional findings as above. (1) Acute appendicitis Acute appendicitis type: with localized peritonitis Appendicitis abscess presence: without abscess Appendicitis gangrene presence: without gangrene Appendicitis perforation presence: without perforation Qualified Code(s): K35.30 - Acute appendicitis with localized peritonitis, without perforation or gangrene
[2020-05-17] MEDS ORDERED: SUCCINYLCHOLINE CHLORIDE 20 MG/ML 10 ML VIAL IV ONE (18:24)
[2020-05-17] MEDS ORDERED: ceFAZolin 2,000 MG/15 ML IV PUSH IV ONE (18:32)
[2020-05-17] MEDS ORDERED: BUPIVACAINE 0.5 % 5 MG/1 ML MPF 30ML VIAL ONE (18:33)
[2020-05-17] MEDS ORDERED: HEPARIN (PORCINE) 1000 UNIT/ML 10 ML (CATH LAB USE ONLY) ONE (18:33)
[2020-05-17] MEDS ORDERED: FLOSEAL HEMOSTATIC MATRIX 10ML TOP ONE (20:10)
--- NOTE | 2020-05-17 20:40 | Post Operative Brief Note ---
Immediate Post Op Note v1 Date of Surgery May 17, 2020 Pre & Post Diagnosis Operation Date: 05/17/20 18:30 Pre-Op Diagnosis: Acute Appendicitis Post-Op Diagnosis: Acute Appendicitis I identified the patient and participated in the time-out.: Yes Procedure Operation Date: 05/17/20 18:30 Actual Procedures p Laparoscopic Appendectomy - Brayden Meng MD Surgeon Brayden Meng MD Sorority Supervisor none Estimated Blood Loss 25 Findings Consistent with Post-Op Diagnosis Drains Monique Catheter (16 danish inserted without difficulty by Hasmukh Farrar. To be removed at case end) and Ton-Gold Drain
[2020-05-17] MEDS ORDERED: ATROPINE SULFATE 0.1 MG/ML 10ML SYR IV PRN (21:08)
[2020-05-17] MEDS ORDERED: ONDANSETRON INJ 2 MG/ML 2 ML VIAL IV PRN ×2 (21:08→22:14)
[2020-05-17] MEDS ORDERED: ePHEDrine sulfate 50 MG/ML AMP IV PRN (21:08)
[2020-05-17] MEDS ORDERED: fentaNYL citrate 100 MCG/2 ML VIAL IV PRN (21:08)
--- NOTE | 2020-05-17 21:48 | Anesthesiology Progress Note ---
Date of Service May 17, 2020 Anesthesia Post Procedure Vital Signs Vital Signs: Temp Pulse Pulse Pulse Resp BP BP 05/17/20 21:45 75 18 137/79 05/17/20 21:35 76 21 139/75 05/17/20 21:25 36.6 C 78 17 138/83 05/17/20 21:15 82 16 125/79 05/17/20 21:05 81 15 135/72 05/17/20 20:58 37.0 C 82 15 114/64 05/17/20 18:48 38.1 C H 87 18 05/17/20 18:30 90 15 05/17/20 18:06 87 22 128/63 05/17/20 18:05 92 H 20 128/63 05/17/20 17:01 88 20 05/17/20 17:00 87 23 117/63 05/17/20 16:30 116/61 05/17/20 16:17 89 22 133/73 05/17/20 16:00 05/17/20 15:31 83 22 05/17/20 15:30 84 20 116/68 05/17/20 15:01 95 H 22 05/17/20 15:00 100 H 22 127/70 05/17/20 14:58 101 H 23 05/17/20 14:57 100 H 20 05/17/20 14:56 05/17/20 14:51 99 H 19 122/68 05/17/20 13:39 38.1 C H 96 H 18 174/76 H BP Pulse Ox 05/17/20 21:45 93 05/17/20 21:35 92 05/17/20 21:25 93 05/17/20 21:15 95 05/17/20 21:05 100 05/17/20 20:58 100 05/17/20 18:48 111/61 95 05/17/20 18:30 93 05/17/20 18:06 05/17/20 18:05 97 05/17/20 17:01 93 05/17/20 17:00 93 05/17/20 16:30 05/17/20 16:17 96 05/17/20 16:00 94 05/17/20 15:31 94 05/17/20 15:30 95 05/17/20 15:01 92 05/17/20 15:00 94 05/17/20 14:58 93 05/17/20 14:57 122/68 93 05/17/20 14:56 95 05/17/20 14:51 93 05/17/20 13:39 97 Pain Intensity Abdomen: Pain Intensity: 2 Transfer of Care Handoff Completed per policy Notes Mental Status: alert / awake / arousable and participated in evaluation Patient Amnestic to Procedure: Yes Nausea / Vomiting: adequately controlled Pain: adequately controlled Airway Patency, RR, SpO2: stable & adequate BP & HR: stable & adequate Hydration State: stable & adequate Anesthetic Complications: no major complications apparent and Pt Satisfied with anesthetic care
--- NOTE | 2020-05-17 21:51 | Consultation ---
Date of Consultation May 17, 2020 Assessment & Plan (1) Acute appendicitis: Status post laparoscopic appendectomy secondary to acute appendicitis POD #0, Dr. Meng EBL 25 mL; DIXON drain intact Tolerated procedure well Pain/wound management per surgery Antibiotics per surgery Activity as directed by surgery Encourage incentive spirometry (2) CAD (coronary artery disease): History of JADON to mid circumflex 12/25/2018 On aspirin, Plavix, statin, lisinopril Aspirin and Plavix currently on hold, last taken 05/18 Reassess in a.m. -recommend resume as soon as able A.m. provider to discuss with GEN surg team (3) T2DM (type 2 diabetes mellitus): Last A1c 7.0 04/12/2020 Hold Metformin Lantus/NovoLog per protocol (4) Dyslipidemia: Continue statin (5) DVT prophylaxis: SCD/TEDS, per surg Disposition: Admit to medical telemetry Follow up: PCP Dr. Maxwell upon discharge Patient was seen and examined in collaboration with Dr. Vogel, please see addendum Supervising Physician Co-Signing Physician Notes Patient is a 70-year-old male with history of coronary artery disease S/P stent, diabetes mellitus, hyperlipidemia and other medical problems was seen and examined postop after having laparoscopic appendectomy by Dr. Meng. Patient is doing well postop. He denied any significant abdominal pain currently. Also denies chest pain, shortness of breath, dizziness, nausea, vomiting. Please review HPI for complete details of presentation. CT abdomen showed acute appendicitis with moderate periappendiceal inflammation stranding and trace free fluid. There is a 10 mm appendicolith within the proximal appen diceal lumen. No evidence of perforation or drainable fluid collection. Labs suggestive of leukocytosis-15 K. Mild hyponatremia, hypochloremia at 133 and 98 respectively noted. Blood sugars elevated at 185. On exam patient is well- built and nourished, no apparent distress, normocephalic atraumatic, EOMI, lungs are clear to auscultation, decreased breath sounds, S1-S2, no murmur, no pedal edema, abdomen soft, surgical site in dressing,+ drain, no guarding or rigidity, alert awake oriented, grossly nonfocal neurological deficits. Patient is consulted for postop medical management. Diabetes--we will hold p.o. medications. Utilize insulin therapy while hospitalized. Recent HbA1c well controlled. Pain control, wound care, DVT prophylaxis as per primary team. Consider resuming aspirin, Plavix as soon as possible if okay with surgery. Advance diet as tolerated. Continue Zosyn empirically. Received IV fluids. Monitor electrolytes. Blood cultures pending. I personally reviewed the record. Patient is interviewed and examined at bedside. Patient's care is coordinated with Sagrario Mancera PA-C. Please refer to the documentation above for details of patient's presentation and for discussion of other issues. History of Present Illness Requesting Physician: Dr. Meng Reason for Consultation: Postop medical management Attending Physician: Brayden Meng MD History of Present Illness This is a 70-year-old male who has significant past medical history of CAD with history of STEMI 12/25/2018 with JADON to mid circumflex by Dr. Jay, T2DM, HLD, history of tobacco use, BPH who presents to ED secondary to right lower quadrant abdominal pain x2 days. Pain started Friday evening and progressively got worse over the last 2 days. Pain was constant, waxes and wanes in severity, made worse with movement and improved with rest. He has never experienced in the past. He felt he was constipated. He opted to present to ED where he was found to have acute appendicitis. He did not meet SIRS or sepsis criteria. He was taken to the OR and underwent laparoscopic appendectomy by Dr. Meng. He tolerated the procedure well. Currently he denies any abdominal pain and feels well. He denies fever, chills, sweats, lightheadedness, dizziness, chest pain, shortness breath, cough, nausea, vomiting, dysuria, increased urgency or frequency with urination. Prior to procedure he felt he was constipated and therefore has not been taking his Metformin for the past day. He feels it makes him constipated. Of significance he does have history of coronary artery disease which he is on dual antiplatelet therapy. His last dose of aspirin Plavix was this morning. He follows Dr. Jay. Allergies Allergy/AdvReac Type Severity Reaction Status Date / Time No Known Allergies Allergy Verified 05/17/20 15:31 Home Medications Medication Instructions Recorded Confirmed Type glucosamine-chondroitin [Osteo 1 tab PO BID 12/25/18 05/17/20 History Bi-Flex] multivitamin 1 tab PO QAM 12/25/18 05/17/20 History atorvastatin 80 mg tablet 80 mg PO QPM #90 tab 04/20/19 05/17/20 Rx Beta Prostate 1 tab PO BID 05/17/20 05/17/20 History aspirin [Aspirin Low Dose] 81 mg PO QAM 05/17/20 05/17/20 History clopidogrel 75 mg PO QAM 05/17/20 05/17/20 History lisinopril 5 mg PO QAM 05/17/20 05/17/20 History metformin 1,000 mg PO DAILY 05/17/20 05/17/20 History Patient History Medical History (Updated 05/17/20 @ 21:49 by Sagrario Mancera PA-C) BPH (benign prostatic hyperplasia) CAD (coronary artery disease) Dyslipidemia ST elevation myocardial infarction (STEMI) of inferior wall T2DM (type 2 diabetes mellitus) Tobacco use disorder Surgical History (Updated 05/17/20 @ 21:45 by Sagrario Mancera PA-C) History of colonoscopy History of knee surgery History of shoulder surgery History of tonsillectomy and adenoidectomy S/P drug eluting coronary stent placement 12/25/18 status post PCI to mid circumflex with JADON S/P PTCA (percutaneous transluminal coronary angioplasty) Family History Mother Diabetes Social History (Updated 05/17/20 @ 21:43 by Sagrario Mancera PA-C) Smoking Status: Former smoker Number of Years Since Quit: 41; Second Hand Exposure: No; Do You Dip or Chew Tobacco: Yes; Hx Alcohol Use: Yes Alcohol type: beer Alcohol Intake Frequency: Monthly or Less Hx Substance Use: No Preferred Language: Slovak Communication Ability: Effective Clock Assembler Required: No Beliefs That Will Affect Care: None marital status: Current Living Situation: Spouse Feels Safe at Home: Yes Assistive Devices: None Review of Systems Review of Systems: All systems reviewed & are unremarkable except as noted in HPI & below Physical Exam Physical Exam: Constitutional: WD/WN, vitals as above, NAD, sitting up in bed, pleasant, conversing easily Head: Normocephalic, Atraumatic Eyes: PERRL, conjunctivae normal, anicteric sclerae ENMT: external ear and nose normal, oropharynx normal Neck: trachea midline, no thyromegaly normal visual inspection Respiratory: normal respiratory effort, lungs clear to auscultation, no wheeze, rales, rhonchi. Normal insp/exp effort, no accessory muscle use Cardiovascular: RRR, no murmur, no edema Vessels: no JVD or carotid bruit Chest: normal inspection of chest Abdomen: Abdominal dressings x4 CDI, DIXON drain with serosanguineous drainage soft, not palpated in setting of immediate postop state Musculoskeletal: no cyanosis or clubbing, extremities motor strength 5/5 Skin: no rashes, warm and dry normal turgor Neurologic: PERRL, EOMI, accommodation nl, no face palsy, no dysarthria CN's II-XI intact bilaterally and moves all extremities Psychiatric: A+Ox3, euthymic affect : Monique catheter in place draining clear yellow urine Results & Data ([facility]) Vital Signs (Past 12 Hours) Vital Signs Temp Pulse Pulse Pulse Resp BP BP 05/17/20 21:25 36.6 C 78 17 138/83 05/17/20 21:15 82 16 125/79 05/17/20 21:05 81 15 135/72 05/17/20 20:58 37.0 C 82 15 114/64 05/17/20 18:48 38.1 C H 87 18 05/17/20 18:30 90 15 05/17/20 18:06 87 22 128/63 05/17/20 18:05 92 H 20 128/63 05/17/20 17:01 88 20 05/17/20 17:00 87 23 117/63 05/17/20 16:30 116/61 05/17/20 16:17 89 22 133/73 05/17/20 16:00 05/17/20 15:31 83 22 05/17/20 15:30 84 20 116/68 05/17/20 15:01 95 H 22 05/17/20 15:00 100 H 22 127/70 05/17/20 14:58 101 H 23 05/17/20 14:57 100 H 20 05/17/20 14:56 05/17/20 14:51 99 H 19 122/68 05/17/20 13:39 38.1 C H 96 H 18 174/76 H BP Pulse Ox 05/17/20 21:25 93 05/17/20 21:15 95 05/17/20 21:05 100 05/17/20 20:58 100 05/17/20 18:48 111/61 95 05/17/20 18:30 93 05/17/20 18:06 05/17/20 18:05 97 05/17/20 17:01 93 05/17/20 17:00 93 05/17/20 16:30 05/17/20 16:17 96 05/17/20 16:00 94 05/17/20 15:31 94 05/17/20 15:30 95 05/17/20 15:01 92 05/17/20 15:00 94 05/17/20 14:58 93 05/17/20 14:57 122/68 93 05/17/20 14:56 95 05/17/20 14:51 93 05/17/20 13:39 97 Laboratory Results Short CBC 05/17/20 Range/Units 14:30 WBC 15.22 H (4.8-10.8) K/uL Hgb 15.1 (14.0-18.0) g/dL Hct 45.2 (42-52) % Plt Count 147 (130-400) K/uL BMP 05/17/20 14:30 Sodium 133 L Potassium 3.9 Chloride 100 Carbon Dioxide 27 BUN 19 H Creatinine 1.10 Glucose 127 H Calcium 9.4 Cardiac Enzymes 05/17/20 Range/Units 14:30 Troponin I < 0.015 (0-0.045) ng/ml Liver Function 05/17/20 Range/Units 14:30 Total Bilirubin 1.3 H (0.2-1) mg/dl AST 17 (15-37) U/L ALT 24 (12-78) U/L Alkaline Phosphatase 98 (45-117) U/L Albumin 3.7 (3.4-5.0) gm/dl Urine 05/17/20 Range/Units 16:21 Urine Color Yellow Urine Appearance Clear (Clear) Urine pH 6.5 (4.5-7.5) Ur Specific [place] 1.008 (1.000-1.030) Urine Protein Negative (Negative) Urine Glucose (UA) Negative (Negative) Diagnostic Findings CT abd/pelvis: IMPRESSION: 1. Acute appendicitis with moderate periappendiceal inflammatory stranding and trace free fluid. There is a 10 mm appendicolith noted within the proximal appendiceal lumen. No evidence of perforation or drainable fluid collection. 2. No bowel obstruction or pneumoperitoneum. 3. Cholelithiasis. 4. Colonic diverticulosis. 5. Prostamegaly. 6. Additional findings as above. Medications Administered Discontinued Medications Bupivacaine HCl (Bupivacaine 0.5 % 5 Mg/1 Ml Mpf 30ml Vial) Confirm Administered Dose 30 ml .ROUTE .STK-MED ONE Stop: 05/17/20 18:34 Last Admin: 05/17/20 20:16 Dose: 30 ml Documented by: [id number] Cefazolin Sodium (Cefazolin 2,000 Mg/15 Ml Iv Push) Confirm Administered Dose 2,000 mg IV .STK-MED ONE Stop: 05/17/20 18:33 Last Admin: 05/17/20 18:56 Dose: 2,000 mg Documented by: [id number] Cefazolin Sodium (Cefazolin 250 Mg/Ml 1 Gm Vial) Confirm Administered Dose 1,000 mg .ROUTE .STK-MED ONE Stop: 05/17/20 18:34 Last Admin: 05/17/20 19:06 Dose: Not Given Documented by: [id number] Heparin Sodium (Porcine) (Heparin (Porcine) 1000 Unit/Ml 10 Ml (Automobile Mechanic Assistant Use Only)) Confirm Administered Dose 10,000 units .ROUTE .STK-MED ONE Stop: 05/17/20 18:34 Last Admin: 05/17/20 20:34 Dose: 10,000 units Documented by: [id number] Piperacillin Sod/Tazobactam Sod (Zosyn) 4.5 gm in 120 mls @ 240 mls/hr IV NOW ONE Stop: 05/17/20 15:01 Last Infusion: 05/17/20 16:08 Dose: 0 mls/hr Documented by: [id number] Admin: 05/17/20 15:12 Dose: 240 mls/hr Documented by: [id number] Sodium Chloride (Nss 1000ml) 1,000 mls @ 999 mls/hr IV .Q1H1M ONE Stop: 05/17/20 15:34 Last Infusion: 05/17/20 16:18 Dose: 0 mls/hr Documented by: [id number] Admin: 05/17/20 15:11 Dose: 999 mls/hr Documented by: [id number] Acetaminophen (Ofirmev) 65 mls @ 200 mls/hr IV NOW ONE; Protocol Stop: 05/17/20 14:53 Last Infusion: 05/17/20 16:41 Dose: 0 mls/hr Documented by: [id number] Admin: 05/17/20 16:17 Dose: 200 mls/hr Documented by: [id number] Ioversol (Ioversol 100ml) 94 ml IV ONCE ONE Stop: 05/17/20 16:40 Last Admin: 05/17/20 16:39 Dose: 94 ml Documented by: [id number] Miscellaneous ( Floseal Hemostatic Matrix 10ml) 10 ml TOP ONCE ONE Stop: 05/17/20 20:11 Last Admin: 05/17/20 20:28 Dose: 10 ml Documented by: [id number] Morphine Sulfate (Morphine Sulfate 2 Mg/Ml Carp) 2 mg IV NOW STA Stop: 05/17/20 14:35 Last Admin: 05/17/20 15:13 Dose: 2 mg Documented by: [id number] Ondansetron HCl (Ondansetron Inj 2 Mg/Ml 2 Ml Vial) 4 mg IV NOW STA Stop: 05/17/20 14:35 Last Admin: 05/17/20 15:12 Dose: 4 mg Documented by: [id number] ECG Rate (beats per minute): 98 Rhythm: normal sinus Findings: + PVC and + RBBB (incomplete) (1) Acute appendicitis Acute appendicitis type: with localized peritonitis Appendicitis abscess presence: without abscess Appendicitis gangrene presence: without gangrene Appendicitis perforation presence: without perforation Qualified Code(s): K35.30 - Acute appendicitis with localized peritonitis, without perforation or gangrene
[2020-05-17] MEDS ORDERED: MoRPHine SULFATE 4 MG/ML 1 ML CARP\\VIAL IV PRN (22:14)
[2020-05-17] MEDS ORDERED: PIPERACILLIN/TAZOBACTAM 3.375 GM in DEXTROSE 5% 100 ML IV SCH (22:30)
[2020-05-17] MEDS ORDERED: GLUCAGON FOR INJ 1 MG VIAL SQ PRN (22:37)
[2020-05-17] MEDS ORDERED: GLUCOSE 10 TABS/TUBE PO PRN (22:37)
[2020-05-17] MEDS ORDERED: GLUCOSE 40% GEL 15 GM TUBE PO PRN (22:37)
[2020-05-17] MEDS ORDERED: CARBOHYDRATES FOR HYPOGLYCEMIA PO PRN (22:37)
[2020-05-17] MEDS ORDERED: DEXTROSE 50% 50 ML SYRINGE IV PRN (22:37)
[2020-05-17] MEDS: SODIUM CHLORIDE 0.9% 1000ML 1,000 ML IV SCH (22:43)
[2020-05-17] MEDS: ATORVASTATIN 40 MG TAB PO SCH (23:09)
--- NOTE | 2020-05-18 03:52 | Operative Report (OR) ---
DATE OF OPERATION: 05/17/2020 PREOPERATIVE DIAGNOSIS: Acute appendicitis. POSTOPERATIVE DIAGNOSIS: Acute appendicitis with perforation. PROCEDURE: Laparoscopic appendectomy. SURGEON: Brayden Meng MD FINDINGS: The appendix in its distal two-thirds was hyperemic. In dissecting the mesentery of the appendix away from the posterior abdominal wall where it was densely adherent, a cavity with purulent material was encountered. It was a small amount. The tip of the appendix was markedly dilated. The base of the appendix was normal. The cecum at the base of the appendix was normal. There was a lot of inflammatory response around the appendix. There was no free abscess or free perforation. The visible bowel appeared normal. TECHNIQUE: The patient was given a general anesthetic and the area was prepped and draped in the usual sterile fashion. Skin inferior to the umbilicus was anesthetized with 0.5% Marcaine. Skin incision was made and was carried down through the subcutaneous tissue to the fascia which was grasped with 2 Candy clamps and incised between. The peritoneum was identified, incised, and the introducer was placed bluntly. The abdomen was then insufflated to a pressure of 15 mmHg with carbon dioxide. The lower midline introducer site was chosen and the skin was similarly anesthetized. The incision was made and the introducer was placed under direct vision. I then was able to easily identify where the appendix was. I then placed a left lower quadrant introducer under direct vision through an incision after anesthetizing the skin as well. I could not elevate the appendix as it was densely adherent to the lateral abdominal wall. Those adhesions were taken down using blunt dissection. I then was able to elevate it some. There were lateral attachments, which were also divided. The cecum was mobilized on the lateral side to allow it to roll more medially. The appendix and the mesoappendix were then densely adherent to the posterior abdominal wall. I was able to establish a plane and then open that space using the LigaSure. That allowed me to elevate the appendix. I then had to roll the terminal ileum off the appendix medially using blunt hydrodissection and some of the adhesions were also divided with the LigaSure. That allowed me to identify the end of the mesoappendix. It was opened in the center and the initial portion was divided using the Endo-DRAKE stapler. That allowed me to further elevate the appendix. In performing the medial mesenteric dissection away from the posterior abdominal wall, at that point is when I encountered the purulent material. This was immediately removed using suction. Further elevation allowed me to free the mesoappendix using the LigaSure. Then working more laterally, I was able to identify the base of the appendix and its junction with the cecum. The remainder of the mesoappendix was away from the wall of the cecum at the base and then it was divided using another firing of the Endo-DRAKE stapler. That allowed me to confirm that I was at the base of the appendix, which was then amputated using the Endo-DRAKE stapler. The appendix was placed into an Endobag and brought out through the left lower quadrant introducer site. That introducer was replaced. The right lower quadrant was irrigated. The patient was on Plavix and there was some oozing, especially from the mesentery. Clips were placed to control some of that oozing. Some of it was controlled with the LigaSure. The right lower quadrant was irrigated and the irrigation was removed. There was no further oozing seen. The right lower quadrant was irrigated and the irrigation was removed again and that was repeated until clear. Again, the staple lines and the areas of dissection were inspected and there was no oozing. Any irrigation that entered the pelvis was removed and any irrigation that entered the right upper quadrant was removed. A separate stab incision was made on the right side of the abdomen through which brought a 10 mm flat Ton-Gold. This was passed along the right gutter and then into the pelvis. It was secured at the skin with a 3-0 nylon. A 10 mL of FloSeal was then placed in the areas of dissection. Gas was allowed to escape and the introducers were removed. The fascia of the umbilical and left lower quadrant introducer sites was closed with interrupted 0 Vicryl. The skin of all the incisions was closed with 4-0 Monocryl in either an interrupted or running subcuticular fashion. The skin was cleansed, dried, benzoin placed, Steri-Strips applied. The estimated blood loss was 25 mL. Sponge, needle and instrument counts were correct prior to closure. The patient tolerated the surgical procedure without complication and was transferred to recovery. I attest to the content of the Intraoperative Record and any orders documented therein. Any exception s are noted below.
[2020-05-18] MEDS: PIPERACILLIN/TAZOBACTAM 3.375 GM in DEXTROSE 5% 100 ML IV SCH ×3 (04:08→20:40)
--- NOTE | 2020-05-18 08:02 | Anesthesiology Progress Note ---
Date of Service May 18, 2020 Anesthesia Post Procedure Vital Signs Vital Signs: Temp Pulse Pulse Pulse Resp BP BP 05/18/20 07:23 36.8 C 75 18 127/67 05/18/20 01:30 36.6 C 80 19 111/67 05/18/20 00:06 36.9 C 62 18 140/75 05/17/20 23:05 36.7 C 73 19 112/70 05/17/20 23:00 37.0 C 75 16 131/76 05/17/20 22:45 36.9 C 76 18 133/78 05/17/20 22:30 36.9 C 75 16 119/72 05/17/20 22:15 37.1 C 85 16 119/72 05/17/20 22:00 37.1 C 85 16 119/72 05/17/20 21:45 75 18 140/79 05/17/20 21:35 76 21 139/75 05/17/20 21:25 36.6 C 78 17 138/83 05/17/20 21:15 82 16 125/79 05/17/20 21:05 81 15 135/72 05/17/20 20:58 37.0 C 82 15 114/64 05/17/20 18:48 38.1 C H 87 18 05/17/20 18:30 90 15 05/17/20 18:06 87 22 128/63 05/17/20 18:05 92 H 20 128/63 05/17/20 17:01 88 20 05/17/20 17:00 87 23 117/63 05/17/20 16:30 116/61 05/17/20 16:17 89 22 133/73 05/17/20 16:00 05/17/20 15:31 83 22 05/17/20 15:30 84 20 116/68 05/17/20 15:01 95 H 22 05/17/20 15:00 100 H 22 127/70 05/17/20 14:58 101 H 23 05/17/20 14:57 100 H 20 05/17/20 14:56 05/17/20 14:51 99 H 19 122/68 05/17/20 13:39 38.1 C H 96 H 18 174/76 H BP Pulse Ox 05/18/20 07:23 92 05/18/20 01:30 91 05/18/20 00:06 94 05/17/20 23:05 90 05/17/20 23:00 90 05/17/20 22:45 93 05/17/20 22:30 93 05/17/20 22:15 94 05/17/20 22:00 93 05/17/20 21:45 93 05/17/20 21:35 92 05/17/20 21:25 93 05/17/20 21:15 95 05/17/20 21:05 100 05/17/20 20:58 100 05/17/20 18:48 111/61 95 05/17/20 18:30 93 05/17/20 18:06 05/17/20 18:05 97 05/17/20 17:01 93 05/17/20 17:00 93 05/17/20 16:30 05/17/20 16:17 96 05/17/20 16:00 94 05/17/20 15:31 94 05/17/20 15:30 95 05/17/20 15:01 92 05/17/20 15:00 94 05/17/20 14:58 93 05/17/20 14:57 122/68 93 05/17/20 14:56 95 05/17/20 14:51 93 05/17/20 13:39 97 Pain Intensity Abdomen: Pain Intensity: 2 Notes Mental Status: alert / awake / arousable and participated in evaluation Nausea / Vomiting: adequately controlled Pain: adequately controlled Airway Patency, RR, SpO2: stable & adequate BP & HR: stable & adequate Hydration State: stable & adequate
[2020-05-18] MEDS: INSULIN GLARGINE SOLOSTAR 100 UNITS/ML 3 ML PEN SC SCH ×2 (08:10→20:41)
[2020-05-18] MEDS: lisinopril 5 MG TAB PO SCH (08:10)
[2020-05-18] MEDS: INSULIN ASPART 100 UNITS/ML 3 ML PEN SC SCH ×4 (08:11→20:40)
[2020-05-18 08:21] LABS: Basophils # (auto) 0.01 K/uL (0-0.2); Basophils % (auto) 0.1 %; Hemoglobin 13.9 g/dL (14.0-18.0); Immature Granulocytes # (auto) 0.04 K/uL (0.00-0.02); Immature Granulocytes % (auto) 0.2 %; Lymphocytes # (auto) 0.88 K/uL (1.2-3.4); Lymphocytes % (auto) 5.3 %; Mean Corpuscular Hgb Conc 33.1 g/dL (32-36); Mean Corpuscular Volume 90.7 fL (80-100); Mean Platelet Volume 11.5 fL (7.4-10.4); Monocytes # (auto) 1.02 K/uL (0.11-0.59); Monocytes % (auto) 6.1 %; Neutrophils # (auto) 14.64 K/uL (1.4-6.5); Neutrophils % (auto) 88.3 %; Platelet Count 146 K/uL (130-400); RDW Coefficient of Variation 14.4 % (11.5-14.5); Red Blood Count 4.63 M/uL (4.7-6.1); White Blood Count 16.59 K/uL (4.8-10.8)
[2020-05-18 08:48] LABS: Calcium 9.1 mg/dl (8.5-10.1); Creatinine Clr Calc Pharmacy 71.6 ml/min; Est GFR (African American) 74.8; Est GFR (Non-African American) 64.6; Magnesium 2.2 mg/dl (1.8-2.4); Potassium 4.2 mmol/L (3.5-5.1)
[2020-05-18 08:50] LABS: Albumin Globulin Ratio 0.9 (0.9-2); Bilirubin,Total 1.1 mg/dl (0.2-1); Globulin 3.5 gm/dl (2.5-4.0); Total Protein 6.5 gm/dl (6.4-8.2)
[2020-05-18] MEDS: oxyCODONE/ACETAMINOPHEN 5mg/325mg TAB PO PRN ×3 (10:12→22:43)
--- NOTE | 2020-05-18 12:51 | Hospitalist Progress Note ---
Date of Service May 18, 2020 Assessment & Plan (1) Acute appendicitis: Status post laparoscopic appendectomy secondary to acute appendicitis POD #1, Dr. Meng EBL 25 mL; DIXON drain intact Tolerated procedure well and appears to be doing well all day today post- operatively. Pain/wound management per surgery Antibiotics per surgery Activity as directed by surgery Encourage incentive spirometry (2) CAD (coronary artery disease): History of JADON to mid circumflex 12/25/2018 On aspirin, Plavix, statin, lisinopril Aspirin and Plavix currently on hold, last taken 05/18 Recommend resume as soon as able per surgery (3) T2DM (type 2 diabetes mellitus): Last A1c 7.0 04/12/2020 Hold Metformin Lantus/NovoLog per protocol--currently glucose at goal (4) DVT prophylaxis: SCD/TEDS, per surg Disposition: Admit to medical telemetry Full Code Thank you for this consultation. Will transfer the patient off telemetry as he is stable from a cardiac standpoint. Debbie Thomas DO [facility]ist Admission and Anticipated Discharge Date Admission Date: May 17, 2020 Subjective 70 yo M s/p appendectomy for appendicitis overnight. Consulted for input and management of CAD. He has been feeling well post-operatively, specifically denying chest pain or shortness of breath. He has been tolerating food Has not had a BM yet. Has some expected post-operative pain but nothing that is uncontrolled per patient. Telemetry reviewed and sinus rhythm with HR in 70s throughout the day with no events. VSS Review of Systems Review of Systems: All systems reviewed & are unremarkable except as noted in Subjective Physical Exam Physical Exam: CONSTITUTIONAL: WNWD, vitals as above, generally well- appearing EYES: normal conjunctivae, no scleral icterus ENT: external ear and nose normal, MMM RESPIRATORY: clear to auscultation bilaterally, no crackles, rales or wheezes, normal respiratory effort CARDIOVASCULAR: regular rate and rhythm, S1 and 2 heard without murmurs, gallops or rubs, no JVD, no peripheral edema GASTROINTESTINAL: soft, tender around incision sites as expected, but no unexpected tenderness no distension or guarding. MUSCULOSKELETAL: strength 5/5 throughout, head is normocephalic and atraumatic, no gross focal deficits. SKIN: warm and dry, small laparoscopic incision sites present on abdomen covered by dressing that is c/d/i, +DIXON drain in place. NEUROLOGIC: No facial palsy, no dysarthria. CN 2-12 grossly intact, no sensory deficit, normal cognition, normal speech, no gross focal deficits. PSYCHIATRIC: alert cooperative and oriented to person, place and time. Results & Data Results & Data ([facility]) Vital Signs (Past 12 Hours) Vital Signs Temp Pulse Pulse Resp BP Pulse Ox 05/18/20 11:53 37.2 C 68 18 99/62 L 91 05/18/20 08:00 76 05/18/20 07:23 36.8 C 75 18 127/67 92 05/18/20 01:30 36.6 C 80 19 111/67 91 Laboratory Results Short CBC 05/17/20 05/18/20 Range/Units 14:30 07:37 WBC 15.22 H 16.59 H (4.8-10.8) K/uL Hgb 15.1 13.9 L (14.0-18.0) g/dL Hct 45.2 42.0 (42-52) % Plt Count 147 146 (130-400) K/uL BMP 05/17/20 05/18/20 14:30 07:37 Sodium 133 L 135 L Potassium 3.9 4.2 Chloride 100 102 Carbon Dioxide 27 27 BUN 19 H 17 Creatinine 1.10 1.15 Glucose 127 H 194 H Calcium 9.4 9.1 Cardiac Enzymes 05/17/20 Range/Units 14:30 Troponin I < 0.015 (0-0.045) ng/ml Liver Function 05/17/20 05/18/20 Range/Units 14:30 07:37 Total Bilirubin 1.3 H 1.1 H (0.2-1) mg/dl AST 17 14 L (15-37) U/L ALT 24 19 (12-78) U/L Alkaline Phosphatase 98 81 (45-117) U/L Albumin 3.7 3.0 L (3.4-5.0) gm/dl Urine 05/17/20 Range/Units 16:21 Urine Color Yellow Urine Appearance Clear (Clear) Urine pH 6.5 (4.5-7.5) Ur Specific [place] 1.008 (1.000-1.030) Urine Protein Negative (Negative) Urine Glucose (UA) Negative (Negative) Medications Administered Current Inpatient Medications Atorvastatin Calcium (Atorvastatin 40 Mg Tab) 80 mg PO QPM AIDAN Stop: 06/16/20 22:13 Last Admin: 05/17/20 23:09 Dose: 80 mg Documented by: Dextrose (Dextrose 50% 50 Ml Syringe) 25 - 50 ml IV UD PRN; Protocol PRN Reason: Hypoglycemia Protocol Stop: 06/16/20 22:36 Glucagon (Glucagon For Inj 1 Mg Vial) 1 mg SQ UD PRN; Protocol PRN Reason: Hypoglycemia Protocol Stop: 06/16/20 22:36 Glucose (Glucose 10 Tabs/Tube) 4 - 8 tabs PO UD PRN; Protocol PRN Reason: Hypoglycemia Protocol Stop: 06/16/20 22:36 Glucose (Glucose 40% Gel 15 Gm Tube) 15 - 30 gm PO UD PRN; Protocol PRN Reason: Hypoglycemia Protocol Stop: 06/16/20 22:36 Sodium Chloride (Nss 1000ml) 1,000 mls @ 15 mls/hr IV .Q24H ON LICENSE OF [facility] Stop: 06/16/20 22:13 Last Admin: 05/17/20 22:43 Dose: 15 mls/hr Documented by: Piperacillin Sod/Tazobactam (Sod 3.375 gm/ Dextrose) 115 mls @ 28.75 mls/hr IV Q8H ON LICENSE OF [facility]; Protocol Stop: 05/28/20 03:59 Last Admin: 05/18/20 12:20 Dose: 28.8 mls/hr Documented by: Insulin Aspart (Insulin Aspart 100 Units/Ml 3 Ml Pen) 0 units SC ACHS ON LICENSE OF [facility] Stop: 06/17/20 07:29 Last Admin: 05/18/20 12:22 Dose: 3 units Documented by: Insulin Glargine (Insulin Glargine Solostar 100 Units/Ml 3 Ml Pen) 5 units SC BID ON LICENSE OF [facility] Stop: 06/17/20 08:59 Last Admin: 05/18/20 08:10 Dose: 5 units Documented by: Lisinopril (Lisinopril 5 Mg Tab) 5 mg PO QAM ON LICENSE OF [facility] Stop: 06/17/20 08:59 Last Admin: 05/18/20 08:10 Dose: 5 mg Documented by: Miscellaneous (Carbohydrates For Hypoglycemia ) 15 - 30 gm PO UD PRN PRN Reason: Hypoglycemia Protocol Stop: 06/16/20 22:36 Miscellaneous Information (Piperacill/Tazobac Consult Active) 1 ea N/A UD PRN PRN Reason: Consult Stop: 06/16/20 22:13 Morphine Sulfate (Morphine Sulfate 4 Mg/Ml 1 Ml Carp\Vial) 4 mg IV Q1H PRN PRN Reason: Pain Stop: 05/31/20 22:13 Ondansetron HCl (Ondansetron Inj 2 Mg/Ml 2 Ml Vial) 4 mg IV Q6H PRN PRN Reason: nausea Stop: 06/16/20 22:13 Oxycodone/Acetaminophen (Oxycodone/Acetaminophen 5mg/325mg Tab) 1 tab PO Q4H PRN PRN Reason: Pain Stop: 05/31/20 22:13 Last Admin: 05/18/20 10:12 Dose: 1 tab Documented by: (1) Acute appendicitis Acute appendicitis type: with localized peritonitis Appendicitis abscess presence: without abscess Appendicitis gangrene presence: without gangrene Appendicitis perforation presence: without perforation Qualified Code(s): K35.30 - Acute appendicitis with localized peritonitis, without perforation or gangrene
--- NOTE | 2020-05-18 16:24 | Surgery Progress Note ---
Date of Service May 18, 2020 Assessment & Plan (1) Acute appendicitis: Postoperative day #1 status post laparoscopic appendectomy for localized perforation of acute appendicitis Patient is stable H&H is acceptable Serosanguineous drainage from the DIXON Continue regular diet Continue IV antibiotics Continue DIXON Encouraged ambulation Admission and Anticipated Discharge Date Admission Date: May 17, 2020 Subjective #1 status post laparoscopic appendectomy for localized perforation of appendicitis Postoperative dayTolerating regular diet Not ambulating much Denies nausea and vomiting Has not passed flatus or had a bowel movement all serosanguineous.Ton-Gold had 20 cc out after surgery yesterday and has had 55 cc out for first 2 shift today Physical Exam Gastrointestinal (Abdomen): Inspection/Auscultation: + abdominal surgical incision (Dressings are clean and dry); abdomen not distended Percussion/Palpation: + abdomen tender (Incisional and right lower quadrant) and abdomen soft Results & Data ([facility]) Vital Signs (Past 12 Hours) Vital Signs Temp Pulse Pulse Resp BP Pulse Ox 05/18/20 15:23 36.8 C 69 16 109/65 92 05/18/20 11:53 37.2 C 68 18 99/62 L 91 05/18/20 08:00 76 05/18/20 07:23 36.8 C 75 18 127/67 92 Laboratory Results 05/18/20 05/18/20 05/18/20 Range/Units 11:37 07:37 07:37 WBC 16.59 H (4.8-10.8) K/uL RBC 4.63 L (4.7-6.1) M/uL Hgb 13.9 L (14.0-18.0) g/dL Hct 42.0 (42-52) % MCV 90.7 (80-100) fL MCH 30.0 (25-34) pg MCHC 33.1 (32-36) g/dL RDW Std Deviation 48.0 H (36.4-46.3) fL RDW Coeff of Rosita 14.4 (11.5-14.5) % Plt Count 146 (130-400) K/uL MPV 11.5 H (7.4-10.4) fL Immature Gran % (Auto) 0.2 % Neut % (Auto) 88.3 % Lymph % (Auto) 5.3 % [place] % (Auto) 6.1 % Eos % (Auto) 0.0 % Baso % (Auto) 0.1 % Neut # (Auto) 14.64 H (1.4-6.5) K/uL Lymph # (Auto) 0.88 L (1.2-3.4) K/uL [place] # (Auto) 1.02 H (0.11-0.59) K/uL Eos # (Auto) 0.00 (0-0.5) K/uL Baso # (Auto) 0.01 (0-0.2) K/uL Immature Gran # (Auto) 0.04 H (0.00-0.02) K/uL Sodium 135 L (136-145) mmol/L Potassium 4.2 (3.5-5.1) mmol/L Chloride 102 (98-107) mmol/L Carbon Dioxide 27 (21-32) mmol/L Anion Gap 6.0 (3-11) BUN 17 (7-18) mg/dl Creatinine 1.15 (0.6-1.4) mg/dl Est Cr Clr Drug Dosing 71.6 ml/min Est GFR ( Amer) 74.8 Est GFR (Non-Af Amer) 64.6 BUN/Creatinine Ratio 15.0 (10-20) Glucose 194 H (70-99) mg/dl POC Glucose 143 H (70-99) mg/dl Calcium 9.1 (8.5-10.1) mg/dl Magnesium 2.2 (1.8-2.4) mg/dl Total Bilirubin 1.1 H (0.2-1) mg/dl AST 14 L (15-37) U/L ALT 19 (12-78) U/L Alkaline Phosphatase 81 (45-117) U/L Total Protein 6.5 (6.4-8.2) gm/dl Albumin 3.0 L (3.4-5.0) gm/dl Globulin 3.5 (2.5-4.0) gm/dl Albumin/Globulin Ratio 0.9 (0.9-2) Urine Color Urine Appearance (Clear) Urine pH (4.5-7.5) Ur Specific [place] (1.000-1.030) Urine Protein (Negative) Urine Glucose (UA) (Negative) Urine Ketones (Negative) Urine Blood (Negative) Urine Nitrite (Negative) Urine Bilirubin (Negative) Urine Urobilinogen (Negative) Ur Leukocyte Esterase (Negative) SARS-CoV-2 Ag (Rapid) (Negative) Blood Type Antibody Screen 05/18/20 05/17/20 05/17/20 Range/Units 07:32 21:41 18:26 WBC (4.8-10.8) K/uL RBC (4.7-6.1) M/uL Hgb (14.0-18.0) g/dL Hct (42-52) % MCV (80-100) fL MCH (25-34) pg MCHC (32-36) g/dL RDW Std Deviation (36.4-46.3) fL RDW Coeff of Rosita (11.5-14.5) % Plt Count (130-400) K/uL MPV (7.4-10.4) fL Immature Gran % (Auto) % Neut % (Auto) % Lymph % (Auto) % [place] % (Auto) % Eos % (Auto) % Baso % (Auto) % Neut # (Auto) (1.4-6.5) K/uL Lymph # (Auto) (1.2-3.4) K/uL [place] # (Auto) (0.11-0.59) K/uL Eos # (Auto) (0-0.5) K/uL Baso # (Auto) (0-0.2) K/uL Immature Gran # (Auto) (0.00-0.02) K/uL Sodium (136-145) mmol/L Potassium (3.5-5.1) mmol/L Chloride (98-107) mmol/L Carbon Dioxide (21-32) mmol/L Anion Gap (3-11) BUN (7-18) mg/dl Creatinine (0.6-1.4) mg/dl Est Cr Clr Drug Dosing ml/min Est GFR ( Amer) Est GFR (Non-Af Amer) BUN/Creatinine Ratio (10-20) Glucose (70-99) mg/dl POC Glucose 216 H 185 H (70-99) mg/dl Calcium (8.5-10.1) mg/dl Magnesium (1.8-2.4) mg/dl Total Bilirubin (0.2-1) mg/dl AST (15-37) U/L ALT (12-78) U/L Alkaline Phosphatase (45-117) U/L Total Protein (6.4-8.2) gm/dl Albumin (3.4-5.0) gm/dl Globulin (2.5-4.0) gm/dl Albumin/Globulin Ratio (0.9-2) Urine Color Urine Appearance (Clear) Urine pH (4.5-7.5) Ur Specific [place] (1.000-1.030) Urine Protein (Negative) Urine Glucose (UA) (Negative) Urine Ketones (Negative) Urine Blood (Negative) Urine Nitrite (Negative) Urine Bilirubin (Negative) Urine Urobilinogen (Negative) Ur Leukocyte Esterase (Negative) SARS-CoV-2 Ag (Rapid) (Negative) Blood Type A Positive Antibody Screen NEGATIVE 05/17/20 05/17/20 Range/Units 17:26 16:21 WBC (4.8-10.8) K/uL RBC (4.7-6.1) M/uL Hgb (14.0-18.0) g/dL Hct (42-52) % MCV (80-100) fL MCH (25-34) pg MCHC (32-36) g/dL RDW Std Deviation (36.4-46.3) fL RDW Coeff of Rosita (11.5-14.5) % Plt Count (130-400) K/uL MPV (7.4-10.4) fL Immature Gran % (Auto) % Neut % (Auto) % Lymph % (Auto) % [place] % (Auto) % Eos % (Auto) % Baso % (Auto) % Neut # (Auto) (1.4-6.5) K/uL Lymph # (Auto) (1.2-3.4) K/uL [place] # (Auto) (0.11-0.59) K/uL Eos # (Auto) (0-0.5) K/uL Baso # (Auto) (0-0.2) K/uL Immature Gran # (Auto) (0.00-0.02) K/uL Sodium (136-145) mmol/L Potassium (3.5-5.1) mmol/L Chloride (98-107) mmol/L Carbon Dioxide (21-32) mmol/L Anion Gap (3-11) BUN (7-18) mg/dl Creatinine (0.6-1.4) mg/dl Est Cr Clr Drug Dosing ml/min Est GFR ( Amer) Est GFR (Non-Af Amer) BUN/Creatinine Ratio (10-20) Glucose (70-99) mg/dl POC Glucose (70-99) mg/dl Calcium (8.5-10.1) mg/dl Magnesium (1.8-2.4) mg/dl Total Bilirubin (0.2-1) mg/dl AST (15-37) U/L ALT (12-78) U/L Alkaline Phosphatase (45-117) U/L Total Protein (6.4-8.2) gm/dl Albumin (3.4-5.0) gm/dl Globulin (2.5-4.0) gm/dl Albumin/Globulin Ratio (0.9-2) Urine Color Yellow Urine Appearance Clear (Clear) Urine pH 6.5 (4.5-7.5) Ur Specific [place] 1.008 (1.000-1.030) Urine Protein Negative (Negative) Urine Glucose (UA) Negative (Negative) Urine Ketones Negative (Negative) Urine Blood Negative (Negative) Urine Nitrite Negative (Negative) Urine Bilirubin Negative (Negative) Urine Urobilinogen Negative (Negative) Ur Leukocyte Esterase Negative (Negative) SARS-CoV-2 Ag (Rapid) Negative (Negative) Blood Type Antibody Screen (1) Acute appendicitis Acute appendicitis type: with localized peritonitis Appendicitis abscess presence: without abscess Appendicitis gangrene presence: without gangrene Appendicitis perforation presence: without perforation Qualified Code(s): K35.30 - Acute appendicitis with localized peritonitis, without perforation or gangrene
[2020-05-18] MEDS ORDERED: metFORMIN HCL 500 MG TAB PO SCH (16:30)
[2020-05-18] MEDS: ATORVASTATIN 40 MG TAB PO SCH (20:41)
[2020-05-18] MEDS: SODIUM CHLORIDE 0.9% 1000ML 1,000 ML IV SCH (22:14)
[2020-05-19] MEDS: PIPERACILLIN/TAZOBACTAM 3.375 GM in DEXTROSE 5% 100 ML IV SCH ×3 (04:15→19:32)
[2020-05-19 06:54] LABS: Basophils # (auto) 0.03 K/uL (0-0.2); Basophils % (auto) 0.2 %; Eosinophils # (auto) 0.15 K/uL (0-0.5); Eosinophils % (auto) 1.1 %; Hematocrit (blood only) 38.8 % (42-52); Hemoglobin 12.7 g/dL (14.0-18.0); Immature Granulocytes # (auto) 0.03 K/uL (0.00-0.02); Immature Granulocytes % (auto) 0.2 %; Lymphocytes # (auto) 2.34 K/uL (1.2-3.4); Lymphocytes % (auto) 16.4 %; Mean Corpuscular Hemoglobin 30.1 pg (25-34); Mean Corpuscular Hgb Conc 32.7 g/dL (32-36); Mean Corpuscular Volume 91.9 fL (80-100); Mean Platelet Volume 11.2 fL (7.4-10.4); Monocytes # (auto) 1.44 K/uL (0.11-0.59); Monocytes % (auto) 10.1 %; Neutrophils # (auto) 10.29 K/uL (1.4-6.5); Platelet Count 154 K/uL (130-400); RDW Coefficient of Variation 14.7 % (11.5-14.5); Red Blood Count 4.22 M/uL (4.7-6.1); White Blood Count 14.28 K/uL (4.8-10.8)
[2020-05-19 07:19] LABS: Creatinine Clr Calc Pharmacy 70.9 ml/min; Est GFR (African American) 76.4
[2020-05-19] MEDS: INSULIN GLARGINE SOLOSTAR 100 UNITS/ML 3 ML PEN SC SCH ×2 (08:42→20:17)
[2020-05-19] MEDS: INSULIN ASPART 100 UNITS/ML 3 ML PEN SC SCH ×4 (08:43→20:18)
[2020-05-19] MEDS: ASPIRIN 81 MG ECTAB PO SCH (09:23)
[2020-05-19] MEDS: lisinopril 5 MG TAB PO SCH (09:23)
--- NOTE | 2020-05-19 11:36 | Surgery Progress Note ---
Date of Service May 19, 2020 Assessment & Plan (1) Acute appendicitis: Postoperative day #2 status post laparoscopic appendectomy for localized perforation with localized peritonitis Improved White count has decreased but is not normal as yet Ambulating Tolerating diet Would continue with DIXON and IV antibiotics until white count is continuing back to normal and can then be discharged to home Ton-Gold can be removed prior to discharge We will send home with oral antibiotics. Admission and Anticipated Discharge Date Admission Date: May 17, 2020 Subjective Postoperative day #2 status post laparoscopic appendectomy for localized perforated appendicitis with localized peritonitis Discomfort is decreased Passing flatus but has not had bowel movement yet Tolerating regular diet DIXON had 40 cc of serosanguineous drainage out over the first shift today Denies nausea and vomiting Physical Exam Gastrointestinal (Abdomen): Inspection/Auscultation: normal bowel sounds; abdomen not distended Percussion/Palpation: + abdomen tender (Right lower quadrant and incisional mostly) and abdomen soft Results & Data ([facility]) Vital Signs (Past 12 Hours) Vital Signs Temp Pulse Pulse Resp BP BP Pulse Ox 05/19/20 08:49 67 114/73 05/19/20 08:09 36.7 C 61 20 106/64 91 05/19/20 03:13 36.7 C 62 15 106/67 91 05/18/20 23:56 37.0 C 63 18 102/64 91 Laboratory Results 05/19/20 05/19/20 05/19/20 Range/Units 07:56 06:28 06:28 WBC 14.28 H (4.8-10.8) K/uL RBC 4.22 L (4.7-6.1) M/uL Hgb 12.7 L (14.0-18.0) g/dL Hct 38.8 L (42-52) % MCV 91.9 (80-100) fL MCH 30.1 (25-34) pg MCHC 32.7 (32-36) g/dL RDW Std Deviation 50.0 H (36.4-46.3) fL RDW Coeff of Rosita 14.7 H (11.5-14.5) % Plt Count 154 (130-400) K/uL MPV 11.2 H (7.4-10.4) fL Immature Gran % (Auto) 0.2 % Neut % (Auto) 72.0 % Lymph % (Auto) 16.4 % [place] % (Auto) 10.1 % Eos % (Auto) 1.1 % Baso % (Auto) 0.2 % Neut # (Auto) 10.29 H (1.4-6.5) K/uL Lymph # (Auto) 2.34 (1.2-3.4) K/uL [place] # (Auto) 1.44 H (0.11-0.59) K/uL Eos # (Auto) 0.15 (0-0.5) K/uL Baso # (Auto) 0.03 (0-0.2) K/uL Immature Gran # (Auto) 0.03 H (0.00-0.02) K/uL Creatinine 1.13 (0.6-1.4) mg/dl Est Cr Clr Drug Dosing 70.9 ml/min Est GFR ( Amer) 76.4 Est GFR (Non-Af Amer) 66.0 POC Glucose 125 H (70-99) mg/dl 05/18/20 05/18/20 05/18/20 Range/Units 20:07 17:02 11:37 WBC (4.8-10.8) K/uL RBC (4.7-6.1) M/uL Hgb (14.0-18.0) g/dL Hct (42-52) % MCV (80-100) fL MCH (25-34) pg MCHC (32-36) g/dL RDW Std Deviation (36.4-46.3) fL RDW Coeff of Rosita (11.5-14.5) % Plt Count (130-400) K/uL MPV (7.4-10.4) fL Immature Gran % (Auto) % Neut % (Auto) % Lymph % (Auto) % [place] % (Auto) % Eos % (Auto) % Baso % (Auto) % Neut # (Auto) (1.4-6.5) K/uL Lymph # (Auto) (1.2-3.4) K/uL [place] # (Auto) (0.11-0.59) K/uL Eos # (Auto) (0-0.5) K/uL Baso # (Auto) (0-0.2) K/uL Immature Gran # (Auto) (0.00-0.02) K/uL Creatinine (0.6-1.4) mg/dl Est Cr Clr Drug Dosing ml/min Est GFR ( Amer) Est GFR (Non-Af Amer) POC Glucose 139 H 122 H 143 H (70-99) mg/dl (1) Acute appendicitis Acute appendicitis type: with localized peritonitis Appendicitis abscess presence: without abscess Appendicitis gangrene presence: without gangrene Appendicitis perforation presence: without perforation Qualified Code(s): K35.30 - Acute appendicitis with localized peritonitis, without perforation or gangrene
[2020-05-19] MEDS: oxyCODONE/ACETAMINOPHEN 5mg/325mg TAB PO PRN (13:17)
--- NOTE | 2020-05-19 16:42 | Hospitalist Progress Note ---
Date of Service May 19, 2020 Assessment & Plan (1) Acute appendicitis: Status post laparoscopic appendectomy secondary to acute appendicitis POD #2, Dr. Meng EBL 25 mL; DIXON drain intact Tolerated procedure well Pain/wound management per surgery Antibiotics per surgery-Leukocytosis persists 16K to 14K today, afebrile and no chills Activity as directed by surgery Encourage incentive spirometry (2) CAD (coronary artery disease): History of JADON to mid circumflex 12/25/2018 On aspirin, Plavix, statin, lisinopril Restarted ASA 81mg daily. Cont holding Plavix for now. (3) T2DM (type 2 diabetes mellitus): Last A1c 7.0 04/12/2020 Hold Metformin Lantus/NovoLog per protocol--currently glucose at goal (4) DVT prophylaxis: SCD/TEDS, per surg Disposition: Admit to medical telemetry Full Code Thank you for this consultation. Debbie Thomas DO [facility] Hospitalist Admission and Anticipated Discharge Date Admission Date: May 17, 2020 Subjective 70 yo M s/p appendectomy for appendicitis, POD 2. Consulted for input and management of CAD. Pt doing well today reports some expected post-op pain tolerating PO leukocytosis persists but no fevers or chills Review of Systems Review of Systems: All systems reviewed & are unremarkable except as noted in Subjective Physical Exam Physical Exam: CONSTITUTIONAL: WNWD, vitals as above, generally well- appearing EYES: normal conjunctivae, no scleral icterus ENT: external ear and nose normal, MMM RESPIRATORY: clear to auscultation bilaterally, no crackles, rales or wheezes, normal respiratory effort CARDIOVASCULAR: regular rate and rhythm, S1 and 2 heard without murmurs, gallops or rubs, no JVD, no peripheral edema GASTROINTESTINAL: soft, tender around incision sites as expected, but no unexpected tenderness no distension or guarding. MUSCULOSKELETAL: strength 5/5 throughout, head is normocephalic and atraumatic, no gross focal deficits. SKIN: warm and dry, small laparoscopic incision sites present on abdomen covered by dressing that is c/d/i, +DIXON drain in place. NEUROLOGIC: No facial palsy, no dysarthria. CN 2-12 grossly intact, no sensory deficit, normal cognition, normal speech, no gross focal deficits. PSYCHIATRIC: alert cooperative and oriented to person, place and time. Results & Data Results & Data ([facility]) Vital Signs (Past 12 Hours) Vital Signs Temp Pulse Pulse Resp BP BP Pulse Ox 05/19/20 16:27 36.8 C 68 20 106/70 93 05/19/20 08:49 67 114/73 05/19/20 08:09 36.7 C 61 20 106/64 91 Laboratory Results Short CBC 05/19/20 Range/Units 06:28 WBC 14.28 H (4.8-10.8) K/uL Hgb 12.7 L (14.0-18.0) g/dL Hct 38.8 L (42-52) % Plt Count 154 (130-400) K/uL BMP 05/19/20 06:28 Creatinine 1.13 Medications Administered Current Inpatient Medications Aspirin (Aspirin 81 Mg Ectab) 81 mg PO QAM AIDAN Stop: 06/18/20 08:59 Last Admin: 05/19/20 09:23 Dose: 81 mg Documented by: Atorvastatin Calcium (Atorvastatin 40 Mg Tab) 80 mg PO QPM AIDAN Stop: 06/16/20 22:13 Last Admin: 05/18/20 20:41 Dose: 80 mg Documented by: Dextrose (Dextrose 50% 50 Ml Syringe) 25 - 50 ml IV UD PRN; Protocol PRN Reason: Hypoglycemia Protocol Stop: 06/16/20 22:36 Glucagon (Glucagon For Inj 1 Mg Vial) 1 mg SQ UD PRN; Protocol PRN Reason: Hypoglycemia Protocol Stop: 06/16/20 22:36 Glucose (Glucose 10 Tabs/Tube) 4 - 8 tabs PO UD PRN; Protocol PRN Reason: Hypoglycemia Protocol Stop: 06/16/20 22:36 Glucose (Glucose 40% Gel 15 Gm Tube) 15 - 30 gm PO UD PRN; Protocol PRN Reason: Hypoglycemia Protocol Stop: 06/16/20 22:36 Sodium Chloride (Nss 1000ml) 1,000 mls @ 15 mls/hr IV .Q24H AIDAN Stop: 06/16/20 22:13 Last Admin: 05/18/20 22:14 Dose: 15 mls/hr Documented by: Piperacillin Sod/Tazobactam (Sod 3.375 gm/ Dextrose) 115 mls @ 28.75 mls/hr IV Q8H AIDAN; Protocol Stop: 05/28/20 03:59 Last Infusion: 05/19/20 16:19 Dose: Infused Documented by: Insulin Aspart (Insulin Aspart 100 Units/Ml 3 Ml Pen) 0 units SC ACHS [facility] Stop: 06/17/20 07:29 Last Admin: 05/19/20 12:15 Dose: 3 units Documented by: Insulin Glargine (Insulin Glargine Solostar 100 Units/Ml 3 Ml Pen) 5 units SC BID [facility] Stop: 06/17/20 08:59 Last Admin: 05/19/20 08:42 Dose: 5 units Documented by: Lisinopril (Lisinopril 5 Mg Tab) 5 mg PO QAM [facility] Stop: 06/17/20 08:59 Last Admin: 05/19/20 09:23 Dose: 5 mg Documented by: Miscellaneous (Carbohydrates For Hypoglycemia ) 15 - 30 gm PO UD PRN PRN Reason: Hypoglycemia Protocol Stop: 06/16/20 22:36 Miscellaneous Information (Piperacill/Tazobac Consult Active) 1 ea N/A UD PRN PRN Reason: Consult Stop: 06/16/20 22:13 Morphine Sulfate (Morphine Sulfate 4 Mg/Ml 1 Ml Carp\Vial) 4 mg IV Q1H PRN PRN Reason: Pain Stop: 05/31/20 22:13 Ondansetron HCl (Ondansetron Inj 2 Mg/Ml 2 Ml Vial) 4 mg IV Q6H PRN PRN Reason: nausea Stop: 06/16/20 22:13 Oxycodone/Acetaminophen (Oxycodone/Acetaminophen 5mg/325mg Tab) 1 tab PO Q4H PRN PRN Reason: Pain Stop: 05/31/20 22:13 Last Admin: 05/19/20 13:17 Dose: 1 tab Documented by: (1) Acute appendicitis Acute appendicitis type: with localized peritonitis Appendicitis abscess presence: without abscess Appendicitis gangrene presence: without gangrene Appendicitis perforation presence: without perforation Qualified Code(s): K35.30 - Acute appendicitis with localized peritonitis, without perforation or gangrene
[2020-05-19] MEDS: ATORVASTATIN 40 MG TAB PO SCH (20:16)
[2020-05-19 22:21] LABS: BUN Creatinine Ratio 28.1 (10-20); Calcium 8.8 mg/dl (8.5-10.1); Creatinine Clr Calc Pharmacy 84.3 ml/min; Est GFR (African American) 94.3; Est GFR (Non-African American) 81.3; Magnesium 2.1 mg/dl (1.8-2.4); Potassium 3.9 mmol/L (3.5-5.1)
[2020-05-20] MEDS: SODIUM CHLORIDE 0.9% 1000ML 1,000 ML IV SCH (00:33)
[2020-05-20] MEDS: PIPERACILLIN/TAZOBACTAM 3.375 GM in DEXTROSE 5% 100 ML IV SCH (04:08)
--- NOTE | 2020-05-20 06:53 | Surgery Progress Note ---
Date of Service May 20, 2020 Assessment & Plan (1) Acute appendicitis: -s/p appendectomy on 05/18/20 -DIXON has drained about 50 cc last shift -awaiting am labs -d/c home once WBC has normalized -continue abx. while in hospital--tash Admission and Anticipated Discharge Date Admission Date: May 17, 2020 Supervising Physician Co-Signing Physician Notes I personally saw and evaluated the patient with Alex Goins PA-C and agree with the assessment and plan. 70 yo male s/p Lap appy with perforation -WBC has normalized in IV ABX -Afebrile, tolerating diet and pain controlled -Will d/c drain today -D/c home today Subjective Pt. doing well--ambulating without difficulty and tolerating solid food. No fevers, shakes, chills, N/V. He has noted return of bowel function since surgery. Physical Exam Constitutional: well developed and well nourished; no acute distress Neck: trachea midline Respiratory: normal respiratory effort; no respiratory distress and no labored breathing Musculoskeletal: minimal pain with palpation, BS are present; DIXON in place with some serous looking fluid. Results & Data ([facility]) Vital Signs (Past 12 Hours) Vital Signs Temp Pulse Resp BP Pulse Ox 05/19/20 22:49 36.9 C 75 18 111/69 92 PG Care Time/CCT Total # of Minutes Spent Total Time Spent with Patient: Total time spent is greater than 50% in coordination of care (as documented) at patient's floor/unit and/or counseling patient: Coding Level of Care Code None Diagnoses Acute appendicitis K35.30 Acute appendicitis type: with localized peritonitis Appendicitis abscess presence: without abscess Appendicitis gangrene presence: without gangrene Appendicitis perforation presence: without perforation (1) Acute appendicitis Acute appendicitis type: with localized peritonitis Appendicitis abscess presence: without abscess Appendicitis gangrene presence: without gangrene Appendicitis perforation presence: without perforation Qualified Code(s): K35.30 - Acute appendicitis with localized peritonitis, without perforation or gangrene
[2020-05-20 07:30] LABS: Basophils # (auto) 0.03 K/uL (0-0.2); Basophils % (auto) 0.3 %; Eosinophils % (auto) 2.9 %; Hematocrit (blood only) 38.6 % (42-52); Hemoglobin 12.5 g/dL (14.0-18.0); Immature Granulocytes # (auto) 0.02 K/uL (0.00-0.02); Immature Granulocytes % (auto) 0.2 %; Lymphocytes % (auto) 21.5 %; Mean Corpuscular Hemoglobin 29.6 pg (25-34); Mean Corpuscular Hgb Conc 32.4 g/dL (32-36); Mean Corpuscular Volume 91.5 fL (80-100); Mean Platelet Volume 11.1 fL (7.4-10.4); Monocytes # (auto) 1.01 K/uL (0.11-0.59); Monocytes % (auto) 9.9 %; Neutrophils # (auto) 6.69 K/uL (1.4-6.5); Neutrophils % (auto) 65.2 %; Platelet Count 164 K/uL (130-400); RDW Coefficient of Variation 14.7 % (11.5-14.5); RDW Standard Deviation 49.6 fL (36.4-46.3); Red Blood Count 4.22 M/uL (4.7-6.1); White Blood Count 10.25 K/uL (4.8-10.8)
[2020-05-20 07:45] LABS: Creatinine Clr Calc Pharmacy 83.4 ml/min; Est GFR (African American) 93.1; Est GFR (Non-African American) 80.3
[2020-05-20] MEDS: ASPIRIN 81 MG ECTAB PO SCH (08:06)
[2020-05-20] MEDS: lisinopril 5 MG TAB PO SCH (08:06)
[2020-05-20] MEDS: INSULIN GLARGINE SOLOSTAR 100 UNITS/ML 3 ML PEN SC SCH (08:10)
[2020-05-20] MEDS: INSULIN ASPART 100 UNITS/ML 3 ML PEN SC SCH (08:10)
--- NOTE | 2020-05-22 11:26 | Discharge Summary ---
Date of Service May 22, 2020 Admission HPI Per Admitting Provider This is a 70-year-old male who presented to the emergency room with a complaint of abdominal pain. It began as a generalized abdominal discomfort 2 nights ago. The pain then migrated and increased to a sharp pain and is now located in the right lower quadrant. He has never had pain like this before. The pain is exacerbated by motion. He had no fever or chills. He had no nausea or vomiting. He has had some constipation recently but no melena or hematochezia. He denies dysuria and hematuria. Admission Exam Per Admitting Provider Constitutional: no acute distress Respiratory: normal respiratory effort, lungs clear to auscultation Cardiovascular: Rate/Rhythm: regular rate and regular rhythm Gastrointestinal (Abdomen): Inspection/Auscultation: normal bowel sounds; abdomen not distended Percussion/Palpation: + abdomen tender (Right lower quadrant) and abdomen soft Skin: no rashes, warm and dry Lymphatic: no cervical lymphadenopathy Principal Diagnosis Acute appendicitis with localized perforation and localized peritonitis Discharge Exam Constitutional: well developed and well nourished; no acute distress Neck: trachea midline Respiratory: normal respiratory effort; no respiratory distress and no labo red breathing Musculoskeletal: minimal pain with palpation, BS are present; DIXON in place with some serous looking fluid. Discharge Data Allergies Allergy/AdvReac Type Severity Reaction Status Date / Time No Known Allergies Allergy Verified 05/17/20 15:31 Consultations 05/17/20 17:23 ED Decision to Admit Stat 05/17/20 21:05 Consult Hospitalist Routine Procedures Performed Operation Date: 05/17/20 18:30 Actual Procedures p Laparoscopic Appendectomy - Brayden Meng MD Ordered Studies 05/17/20 14:13 CT abd pelvis IV con only Stat Hospital Course (1) Abdominal pain: The patient was found to have appendicitis by CT scan, exam, laboratory evaluation and history. He was taken to the operating room and underwent a laparoscopic appendectomy. He was found to have localized perforation. A drain was placed. He was continued on IV antibiotics. By postoperative day #3 his white blood cell count had decreased to normal. He was tolerating a regular diet and ambulating. He was passing flatus. He had no nausea or vomiting. The DIXON drain had approximately 50 cc/day of serosanguineous fluid. There is no evidence of purulence. His H&H remained stable. He was placed back on his Plavix as well as his other preoperative home medications. Total Time Total Time Spent Total Time Spent (In Minutes): 15 Discharge Plan Discharge Items Patient Disposition: Home - Self-Care Reason For Visit: PPENDICITIS Discharge Diagnosis: Appendicitis with localized peritonitis and localized perforation Condition on Discharge: Good Activity: As commented below Lifting: No more than 10 pounds Bathing Comment: Ok to shower. No tub baths. Driving/Machine Use: When calered by Dr. Meng Non-emergency contact: Surgeon Call non-emergency contact if: your temperature is above 101.5, your wound has increased redness and your wound pain has increased Follow-up/Referrals: Prakash Maxwell MD [Primary Care Provider] - Diet: Regular Addtl Attending Provider Instructions: Post-Surgical ~Discharge Instructions Activity Recommendations: - lifting limitation: (10 pounds for 2 weeks), - exercise/sex/sports limit: (nonstrenuous for 2 weeks), - driving or machine use limit: (none for 1 week), - Shower/bathe limit: (may shower beginning tomorrow) Diet: - Resume previous diet SPECIAL CARE INSTRUCTIONS: - May shower in 24 hours. Let water run over area and pat dry. - Leave steri strips on for one week. - Call the surgeon's office with any questions or concerns - - (ex. temperature higher than 101 degrees F, excessive bleeding or pain). MEDICATIONS: - Resume previous medications unless instructed otherwise by your surgeon. - Ibuprofen 600 mg every 6 hours with food - Percocet 1 every 4 hours, as needed for pain FOLLOW UP VISIT: - If not already scheduled, please call the office to schedule a two week follow-up appointment. Office number Pending Studies at Discharge: Yes Studies:: Pathology Stand-Alone Forms: [facility] [employer], Smoking Cessation Medications and DC Order Prescriptions: New oxycodone-acetaminophen [Percocet] 5-325 mg Tablet 1 tab PO Q4H PRN (Reason: pain) Qty: 5 RF: 0 amoxicillin-pot clavulanate [Augmentin] 875-125 mg tablet 1 tab PO BID Qty: 14 RF: 0 Continued atorvastatin 80 mg tablet 80 mg PO QPM Qty: 90 RF: 3 multivitamin Tablet 1 tab PO QAM RF: 0 glucosamine-chondroitin [Osteo Bi-Flex] 250-200 mg Tablet 1 tab PO BID RF: 0 metformin 500 mg Tablet 1,000 mg PO DAILY RF: 0 aspirin [Aspirin Low Dose] 81 mg Tablet,Delayed Release (Dr/Ec) 81 mg PO QAM RF: 0 Beta Prostate tablet 1 tab PO BID RF: 0 clopidogrel 75 mg tablet 75 mg PO QAM RF: 0 lisinopril 5 mg tablet 5 mg PO QAM RF: 0 Discharge Orders: Discharge Order (Routine); Ordered 05/20/20 Ordered By: Feliciano Goins Admission Data Admit Date/Time: 05/17/20 20:46 Attending Provider: Brayden Meng Admit Provider: Brayden Meng Primary Care Provider: Prakash Maxwell Other Providers: Debbie Thomas ; Brayden Meng ; Silas Torres Other Interventions: Discharge Summary Assessment (RN) Last Done: 05/20/20 09:11
== END 2020-05-20 10:23 | disposition home or self-care (01) | DRG 339 ==
LOC: ED 13:36 → ASU 18:25 → 2N 20:46